=== PATIENT | female | born 1960 | race Caucasian/White ===

== ENCOUNTER 2017-01-08 17:21 | Emergency (ER) | payer BC ==
[~2017-01-08] VITALS: Ht 157.5 cm; Wt 60.0 kg
[~2017-01-08 17:21] MED LIST: HYDR-906 PO; IBUP-1542 PO; NAPR-260 PO; OXYC-279 PO
[2017-01-08 17:22] VITALS: Ht 157.5 cm; Wt 60.0 kg
[2017-01-08] MEDS ORDERED: HYDR-906 PO (17:34)
--- NOTE | 2017-01-08 17:34 | ERD ---
ER Documentation Chief Complaint Date/Time DATE: 01/08/17 TIME: 17:32 Chief Complaint R SHOULDER HAS A FX PER PT HPI This is a 56-year-old female who presents to the emergency room for evaluation of right-sided shoulder pain. The patient does state that she has a previous fracture in the humerus. She states that she is ran out of her Irving medication and states that she came to the emergency room for a refill. The patient was saying that she would like Percocets instead of Irving because they help her better. The patient denies any new trauma to the area and came to the ER for evaluation ROS All systems reviewed and are negative except as per history of present illness. Medications Home Meds Active Scripts Oxycodone HCl/Acetaminophen (Percocet 5-325 mg Tablet) 1 Each Tablet, 1 EACH PO QID, #18 TAB Prov:MAK CRAIG MD 06/28/16 Ibuprofen* (Motrin*) 600 Mg Tab, 600 MG PO Q6, #20 TAB Prov:MANUEL MCGOWAN NP 06/16/16 Hydrocodone/Acetaminophen (Irving 5-325 Tablet) 1 Each Tablet, 1 TAB PO Q6H Y for PAIN, #7 TAB Prov:MANUEL MCGOWAN NP 06/16/16 Hydrocodone/Acetaminophen ([place] 5-325 Tablet) 1 Each Tablet, 1 TAB PO Q6H Y for PAIN, #6 TAB Prov:VALERIE SMALLWOOD NP 06/09/16 Naproxen* (Naprosyn*) 500 Mg Tablet, 500 MG PO BID Y for PAIN AND/OR INFLAMMATION, #30 TAB Prov:PAPITO BLANTON PA-C 06/02/16 Hydrocodone/Acetaminophen (Ir[place] 5-325 Tablet) 1 Each Tablet, 1 TAB PO Q6H Y for PAIN, #10 TAB Prov:PAPITO BLANTON PA-C 06/02/16 Oxycodone HCl/Acetaminophen (Percocet 5-325 mg Tablet) 1 Each Tablet, 1 EACH PO BID, #15 TAB Prov:ROSA ELENA RENO PA-C 05/29/16 Hydrocodone/Acetaminophen (Irving 5-325 Tablet) 1 Each Tablet, 1 TAB PO Q6H Y for PAIN, #20 TAB Prov:ROSA ELENA RENO PA-C 05/20/16 Allergies Allergies: Coded Allergies: No Known Allergy (Unverified , 10/09/14) PMhx/Soc History of Surgery: No Anesthesia Reaction: No Hx Neurological Disorder: No Hx Respiratory Disorders: No Hx Cardiac Disorders: No Hx Psychiatric Problems: No Hx Miscellaneous Medical Probl: No Hx Alcohol Use: No Hx Substance Use: No Hx Tobacco Use: No Physical Exam Vitals Vital Signs Date Time Temp Pulse Resp B/P Pulse Ox O2 Delivery O2 Flow Rate FiO2 01/08/17 17:22 98.3 89 18 124/79 100 Physical Exam Const: No acute distress Head: Atraumatic Eyes: Normal Conjunctiva ENT: Normal External Ears, Nose and Mouth. Neck: Full range of motion..~ No meningismus. Resp: Clear to auscultation bilaterally Cardio: Regular rate and rhythm, no murmurs Abd: Soft, non tender, non distended. Normal bowel sounds Skin: No petechiae or rashes Back: No midline or flank tenderness Ext: No cyanosis, or edema, full range of motion of the right shoulder Neur: Awake and alert Psych: Normal Mood and Affect Procedures/MDM This 56-year-old female presents to the emergency room for evaluation of right shoulder pain. The patient did have full range of motion of the shoulder she was neurovascularly intact in her right upper extremity distal to the shoulder pain. No gross deformity. She does have old chronic fracture of the humeral head. The patient was asking for Percocet for her pain. I advised I will not be given her a prescription for Percocet. I advised her that the ER is not a place to come for a narcotic medication refill however given her circumstance I will discharge her home with a prescription for Irving 5 mg #10. Departure Diagnosis: Primary Impression: Shoulder pain Additional Impression: Fracture of humeral head, right, closed Condition: Stable BERT FINLEY DO January 08, 2017 17:34
[2017-01-08] MEDS ORDERED: HYDROCODONE/APAP (5/325) TAB PO ONE (18:00)
== END 2017-01-08 18:00 | disposition home or self-care (01) ==
LOC: FTE 17:21
DX: M25.511 Pain in right shoulder (principal); S42.201D Unspecified fracture of upper end of right humerus, subsequent encounter for fracture with routine healing; X58.XXXD Exposure to other specified factors, subsequent encounter
CPT/HCPCS: Z7502; Z7610; 99283

== ENCOUNTER 2017-02-10 14:01 | Emergency (ER) | payer BC ==
[~2017-02-10] VITALS: Ht 157.5 cm; Wt 78.0 kg
[2017-02-10 14:05] VITALS: Ht 157.5 cm; Wt 78.0 kg
--- NOTE | 2017-02-10 15:52 | RADRPT ---
PROCEDURE: XR Chest. CLINICAL INDICATION: Chest pain TECHNIQUE: A single portable view of the chest was obtained. COMPARISON: None FINDINGS: The aorta is tortuous and atherosclerotic. The cardiomediastinal silhouette is otherwise within nor mal limits. The lungs and pleural spaces are clear. The soft tissues and osseous structures demons trate benign age related senescent changes. IMPRESSION: No acute cardiopulmonary disease. RPTAT: HPNM Physician Gary Date Time Electronically viewed and signed by Hossein Moss Physician on 02/10/2017 15:52 /
[2017-02-10 16:17] LABS: ADD SCAN DIFF NO
[2017-02-10 16:23] LABS: BASOPHILS % 0.2 % (0.0-2.0); HEMATOCRIT 39.1 % (37.0-47.0); HEMOGLOBIN 13.3 g/dl (12.0-16.0); LYMPHOCYTES # 1.8 10^3/ul (0.8-2.9); LYMPHOCYTES % 14.8 % (15.0-51.0); MEAN CORPUSCULAR HEMOGLOBIN 30.2 pg (29.0-33.0); MEAN CORPUSCULAR VOLUME 88.7 fl (82.0-101.0); MEAN PLATELET VOLUME 11.3 fl (7.4-10.4); MONOCYTE # 0.7 10^3/ul (0.3-0.9); MONOCYTES % 5.4 % (0.0-11.0); NEUTROPHIL # 9.8 10^3/ul (1.6-7.5); NEUTROPHILS % 79.2 % (39.0-77.0); PLATELET COUNT 204 10^3/UL (140-415); RED BLOOD COUNT 4.41 10^6/ul (4.20-5.40); RED CELL DISTRIBUTION WIDTH 12.2 % (11.5-14.5); WHITE BLOOD COUNT 12.3 10^3/ul (4.8-10.8)
[2017-02-10] MEDS ORDERED: HYDROCODONE/APAP (5/325) TAB PO ONE (16:30)
[2017-02-10 16:45] LABS: INR 0.94; PROTIME 12.6 Sec (12.2-14.2)
[2017-02-10 16:46] LABS: ANION GAP 14 (8-16); BLOOD UREA NITROGEN 15 mg/dl (7-20); CALCIUM 9.7 mg/dl (8.4-10.2); CARBON DIOXIDE 26 mmol/L (21-31); CHLORIDE 96 mmol/L (97-110); CREATININE 0.58 mg/dl (0.44-1.00); GLUCOSE 378 mg/dl (70-220); SODIUM 132 mmol/L (135-144)
[2017-02-10 16:47] LABS: PARTIAL THROMBOPLASTIN TIME 24.4 Sec (25.0-35.0)
[2017-02-10 17:00] LABS: TROPONIN-I < 0.012 ng/ml (0.00-0.12)
--- NOTE | 2017-02-10 17:18 | RADRPT ---
PROCEDURE: Right breast ultrasound. CLINICAL INDICATION: Right breast palpable lesion. TECHNIQUE: High-resolution sonography of the right breast was performed in the axial and sagittal planes. COMPARISON: No prior study is available for comparison. FINDINGS: At the site of the palpable lesion in the 12 o'clock position of the right breast, there is a solid hypoechoic mass with irregular margins. The mass measures 7.2 x 6.2 x 5.4 cm. There is no other cystic or solid mass in the right breast IMPRESSION: 1. Large solid mass in the right breast 12 o'clock position measuring 7.2 x 6.2 x 5.4 cm. This is h ighly suspicious for neoplasm. Ultrasound-guided biopsy and surgical consultation is advised. RPTAT: QQ .Tez Pack MD, Date Time Electronically viewed and signed by .Tez Pack MD, on 02/10/2017 17:17 .R/
[2017-02-10] MEDS ORDERED: IBUP-1542 PO (17:42)
[2017-02-10 17:57] VITALS: BP 109/68; PULSE 66; RESP 16
--- NOTE | 2017-02-11 00:13 | ERD ---
ER Documentation Chief Complaint Date/Time DATE: 02/11/17 TIME: 00:09 Chief Complaint RIGHT BREAST LUMP FEW DAYS, HAS PAIN HPI This is a 56-year-old female presents to the ER with the lump in her breast over the last month. Patient states that area has gotten significantly painful and lump has gotten bigger. Patient denies any skin changes, nipple discharge, weight loss, night sweats. Patient also complaining of chest pain and shortness of breath which started last night. Patient believes that the mass is getting so bad that it is obstructing her breathing. Patient is currently on pain medications for a broken shoulder. Patient had a mammogram 2 years ago and states that it was normal. Patient denies any fevers or chills. ROS 12 point review of systems was done, all negative except per HPI. Medications Home Meds Active Scripts Ibuprofen* (Motrin*) 600 Mg Tab, 600 MG PO Q6, #30 TAB Prov:GUMARO ACOSTA 02/10/17 Hydrocodone/Acetaminophen ([place] 5-325 Tablet) 1 Each Tablet, 1 EACH PO Q8 for 3 Days, #10 TAB Prov:BERT FINLEY DO 01/08/17 Oxycodone HCl/Acetaminophen (Percocet 5-325 mg Tablet) 1 Each Tablet, 1 EACH PO QID, #18 TAB Prov:MAK RODAS MD 06/28/16 Ibuprofen* (Motrin*) 600 Mg Tab, 600 MG PO Q6, #20 TAB Prov:MANUEL MCGOWAN NP 06/16/16 Hydrocodone/Acetaminophen ([place] 5-325 Tablet) 1 Each Tablet, 1 TAB PO Q6H Y for PAIN, #7 TAB Prov:MANUEL MCGOWAN NP 06/16/16 Hydrocodone/Acetaminophen ([place] 5-325 Tablet) 1 Each Tablet, 1 TAB PO Q6H Y for PAIN, #6 TAB Prov:VALERIE SMALLWOOD NP 06/09/16 Naproxen* (Naprosyn*) 500 Mg Tablet, 500 MG PO BID Y for PAIN AND/OR INFLAMMATION, #30 TAB Prov:PAPITO BLANTON PA-C 06/02/16 Hydrocodone/Acetaminophen ([place] 5-325 Tablet) 1 Each Tablet, 1 TAB PO Q6H Y for PAIN, #10 TAB Prov:LUISA BLANTONORALeticia Oneill PA-C 06/02/16 Oxycodone HCl/Acetaminophen (Percocet 5-325 mg Tablet) 1 Each Tablet, 1 EACH PO BID, #15 TAB Prov:ROSA ELENA RENO PA-C 05/29/16 Hydrocodone/Acetaminophen ([place] 5-325 Tablet) 1 Each Tablet, 1 TAB PO Q6H Y for PAIN, #20 TAB Prov:ROSA ELENA RENO PA-C 05/20/16 Allergies Allergies: Coded Allergies: No Known Allergy (Unverified , 10/09/14) PMhx/Soc History of Surgery: No Anesthesia Reaction: No Hx Neurological Disorder: No Hx Respiratory Disorders: No Hx Cardiac Disorders: No Hx Psychiatric Problems: No Hx Miscellaneous Medical Probl: Yes (R shoulder fx, lower back fx.) Hx Alcohol Use: No Hx Substance Use: No Hx Tobacco Use: No Smoking Status: Never smoker Physical Exam Vitals Vital Signs Date Time Temp Pulse Resp B/P Pulse Ox O2 Delivery O2 Flow Rate FiO2 02/10/17 17:57 66 16 109/68 Room Air 02/10/17 14:05 98.2 76 18 118/76 99 Physical Exam GENERAL: The patient is well developed and appropriate for usual state of health , in no apparent distress. HEENT: Atraumatic. BREAST: There is a large centimeter there is a large 7 cm x 8 cm hard mass to the right breast that is nonmovable. CHEST: Clear to auscultation bilaterally. There are no rales, wheezes or rhonchi. HEART: Regular rate and rhythm. No murmurs, clicks, rubs or gallops. ABDOMEN: Soft, nontender and nondistended. Good bowel sounds. No rebound or guarding. No gross peritonitis. No gross organomegaly or masses. No Grimes sign or McBurney point tenderness. No pulsatile masses. NEURO: Alert and oriented. SKIN: There is no apparent rash or petechia. The skin is warm and dry. Result Diagram: 02/10/17 1600 02/10/17 1600 Results 24 hrs Laboratory Tests Test 02/10/17 16:00 White Blood Count 12.310^3/ul Red Blood Count 4.4110^6/ul Hemoglobin 13.3g/dl Hematocrit 39.1% Mean Corpuscular Volume 88.7fl Mean Corpuscular Hemoglobin 30.2pg Mean Corpuscular Hemoglobin Concent 34.0g/dl Red Cell Distribution Width 12.2% Platelet Count 17549^3/UL Mean Platelet Volume 11.3fl Neutrophils % 79.2% Lymphocytes % 14.8% Monocytes % 5.4% Eosinophils % 0.0% Basophils % 0.2% Nucleated Red Blood Cells % 0.0/100WBC Neutrophils # 9.810^3/ul Lymphocytes # 1.810^3/ul Monocytes # 0.710^3/ul Eosinophils # 0.010^3/ul Basophils # 0.010^3/ul Nucleated Red Blood Cells # 0.010^3/ul Prothrombin Time 12.6Sec Prothrombin Time Ratio 1.0 INR International Normalized Ratio 0.94 Activated Partial Thromboplast Time 24.4Sec Sodium Level 132mmol/L Potassium Level 4.0mmol/L Chloride Level 96mmol/L Carbon Dioxide Level 26mmol/L Anion Gap 14 Blood Urea Nitrogen 15mg/dl Creatinine 0.58mg/dl Glucose Level 378mg/dl Calcium Level 9.7mg/dl Troponin I < 0.012ng/ml Current Medications Medications (Trade) Dose Ordered Sig/Melissa Route PRN Reason Start Time Stop Time Status Last Admin Dose Admin Acetaminophen/ Hydrocodone Bitart ([place] (5/325)) 1 tab ONCE ONCE PO 02/10/17 16:30 02/10/17 16:31 DC 02/10/17 16:05 Procedures/MDM This is a 56-year-old female that presents to the ER with a lump in her breast, patient does have a hard mass that is likely a neoplasm. Patient was urged to get a needle biopsy as soon as possible. In regards to patient's chest pain Differential diagnosis includes but is not limited to; STEMI, dissection, pneumothorax, PE, esophageal rupture, tamponade, pneumonia, pericarditis, GERD, musculoskeletal, endocarditis, anxiety. EKG was taken [address] elevation no T-wave inversion, read by Dr. Rodas. Patient's x-ray was normal. Patient is afebrile and well-appearing she is not hypoxic in any respiratory distress. Suspicion for acute cardiac etiology or intrathoracic etiology is low. Patient is to follow-up with her primary care doctor within 1-2 days return to ER sooner if symptoms worsen. My medical decision making was shared with the patient she understands and agrees with plan. Departure Diagnosis: Primary Impression: Breast mass Condition: Stable Patient Instructions: Breast Mass, Uncertain Cause Additional Instructions: Call your primary care doctor TOMORROW for an appointment during the next 1-2 days.See the doctor sooner or return here if your condition worsens before your appointment time. IT IS VERY IMPORTANT THAT YOU FOLLOW UP WITH YOUR PRIMARY CARE DOCTOR AND GET A BIOPSY OF THIS MASS SOON POSSIBLE! GUMARO ACOSTA Feb 11, 2017 00:13
== END 2017-02-10 17:57 | disposition home or self-care (01) ==
LOC: FTE 14:01
DX: N63 Unspecified lump in breast (principal); R07.9 Chest pain, unspecified
CPT/HCPCS: 36415; 71010; 76642; 80048; 84484; 85025; 85610; 85730; 93005; Z7502; Z7610

== ENCOUNTER 2017-03-21 11:58 | Inpatient (IN) | payer BC ==
[~2017-03-21] VITALS: Ht 149.9 cm; Wt 60.0 kg
[2017-03-21] VITALS (18 sets, daily range): BP systolic 114–189; BP diastolic 61–88; PULSE 95–106; RESP 15–23; Ht 149.9 cm; Wt 60.0 kg
[~2017-03-21 11:58] MED LIST changes: +CEFAZOLIN 2 GM/50 ML (PMX) 50 ML IVPB SCH; +LIDOCAINE 1% (MDV) 20 ML INJ ONE
[2017-03-21 13:36] LABS: BASOPHILS % 0.3 % (0.0-2.0); EOSINOPHILS # 0.1 10^3/ul (0.0-0.5); EOSINOPHILS % 0.8 % (0.0-7.0); HEMOGLOBIN 13.7 g/dl (12.0-16.0); LYMPHOCYTES # 2.1 10^3/ul (0.8-2.9); LYMPHOCYTES % 32.7 % (15.0-51.0); MEAN CORPUSCULAR HEMOGLOBIN 29.2 pg (29.0-33.0); MEAN CORPUSCULAR HGB CONC 33.4 g/dl (32.0-37.0); MEAN CORPUSCULAR VOLUME 87.4 fl (82.0-101.0); MEAN PLATELET VOLUME 11.1 fl (7.4-10.4); MONOCYTE # 0.5 10^3/ul (0.3-0.9); MONOCYTES % 8.6 % (0.0-11.0); NEUTROPHIL # 3.6 10^3/ul (1.6-7.5); NEUTROPHILS % 57.3 % (39.0-77.0); PLATELET COUNT 222 10^3/UL (140-415); RED BLOOD COUNT 4.69 10^6/ul (4.20-5.40); RED CELL DISTRIBUTION WIDTH 12.7 % (11.5-14.5); WHITE BLOOD COUNT 6.3 10^3/ul (4.8-10.8)
[2017-03-21 13:49] LABS: INR 0.93; PARTIAL THROMBOPLASTIN TIME 27.7 Sec (25.0-35.0); PROTIME 12.5 Sec (12.2-14.2)
[2017-03-21 13:52] LABS: ALBUMIN 4.1 g/dl (3.3-4.9); ALBUMIN/GLOBULIN RATIO 1.13; BILIRUBIN,INDIRECT 0.4 mg/dl (0-1.1); BILIRUBIN,TOTAL 0.4 mg/dl (0.2-1.3); TOTAL PROTEIN 7.7 g/dl (6.1-8.1)
[2017-03-21 13:54] LABS: CALCIUM 9.2 mg/dl (8.4-10.2); CREATININE 0.53 mg/dl (0.44-1.00); POTASSIUM 3.7 mmol/L (3.5-5.1)
--- NOTE | 2017-03-21 13:57 | RADRPT ---
PROCEDURE: XR Chest 1 View. CLINICAL INDICATION: Abnormal breath sounds, preop. TECHNIQUE: AP view of the chest was obtained. COMPARISON: None. FINDINGS: The cardiomediastinal silhouette is within normal limits. No consolidations are identified. No pneu mothorax is seen. Osseous structures are intact. IMPRESSION: No visualized active disease. RPTAT: AA .Patrice Jackson MD, Date Time Electronically viewed and signed by .Patrice Jackson MD, on 03/21/2017 13:56 .P/
--- NOTE | 2017-03-21 14:32 | RADRPT ---
Vent Rate: 91 bpm RR Interval: 0 msec AL Interval: 136 msec QRS Duration: 70 msec QT Interval: 362 msec QTC Interval: 445 msec P-R-T Stanton: 59 - 68 - 63 degrees Normal sinus rhythm Normal ECG Electronically Signed By: Eric Fernando [id number]
[2017-03-21] MEDS: SOD CHLORIDE 0.9% 1,000 ML IV SCH ×2 (14:43→20:45)
[2017-03-21] MEDS ORDERED: D5W-0.45 NACL + KCL 20 MEQ 1,000 ML IV SCH (16:31)
[2017-03-21] MEDS ORDERED: PROPOFOL 20 ML ONE (16:34)
[2017-03-21] MEDS ORDERED: SUCCINYLCHOLINE CHLORIDE 100 MG/5 ML SYG IV ONE (16:34)
[2017-03-21] MEDS ORDERED: FENTAnyl 50 MCG/ML VIAL ONE (16:36)
[2017-03-21] MEDS ORDERED: MIDAZOLAM 1 MG/ML 2 ML INJ ONE (16:36)
[2017-03-21] MEDS ORDERED: FAMOTIDINE 20 MG INJ ONE (16:54)
[2017-03-21] MEDS ORDERED: ONDANSETRON 4 MG INJ ONE (16:54)
[2017-03-21] MEDS ORDERED: ACETAMINOPHEN 1000MG/100ML IV 100 ML IVPB PRN (17:00)
[2017-03-21] MEDS ORDERED: CEFAZOLIN 1 GM INJ ONE (17:15)
[2017-03-21] MEDS ORDERED: ESMOLOL 10 ML ONE ×2 (17:25→17:32)
[2017-03-21] MEDS ORDERED: HYDROmorphONE 2 MG/ML SYG ONE (17:54)
--- NOTE | 2017-03-21 18:15 | OPR ---
Date/Time of Note Date/Time of Note DATE: 03/21/17 TIME: 18:13 Operative Report Preoperative Diagnosis Large locally advanced right breast cancer Postoperative Diagnosis Same Operation/Procedure Performed Right modified radical mastectomy with en bloc resection of a large portion of the pectoralis major muscle Surgeon: LOBITO GREENE MD specimen preparation assistant: TAMICA WATTS MD Anesthesia: general Estimated Blood Loss: 200 - 250 ml's Complications: None LOBITO GREENE MD Mar 21, 2017 18:15
[2017-03-21] MEDS ORDERED: METOCLOPRAMIDE 10 MG INJ IV PRN (18:30)
[2017-03-21] MEDS ORDERED: TRIMETHOBENZAMIDE 100 MG/ML VIAL IM PRN (18:30)
[2017-03-21] MEDS ORDERED: PROCHLORPERAZINE 10 MG INJ IV PRN (18:30)
[2017-03-21] MEDS ORDERED: HYDROmorphONE (0.2 MG/ML) 10ML SYG IV PRN ×3 (18:30)
[2017-03-21] MEDS ORDERED: ONDANSETRON 4 MG INJ IV PRN (18:30)
[2017-03-21] MEDS ORDERED: INSULIN ASPART [NOVOLOG] 3 ML PEN SC ONE (18:30)
[2017-03-21] MEDS ORDERED: LABETALOL HCL 20MG INJ IV PRN (18:30)
[2017-03-21] MEDS ORDERED: hydrALAzine 20 MG INJ IV PRN (18:30)
[2017-03-21] MEDS ORDERED: morphine (1 MG/ML) 10ML SYRINGE IV PRN ×3 (18:30)
[2017-03-21] MEDS ORDERED: KETOROLAC 30 MG INJ IV PRN (18:30)
[2017-03-21] MEDS ORDERED: OXYCODONE/ACETAMINOPHEN (5/325) TAB PO PRN ×2 (18:30)
[2017-03-21] MEDS ORDERED: GLUCOSE GEL 15 GRAM TUBE BUCCAL PRN (20:30)
[2017-03-21] MEDS ORDERED: DEXTROSE 50% 50 ML SYRINGE IV PRN ×2 (20:30)
[2017-03-21] MEDS ORDERED: oxyCODONE (CR) 20 MG TAB [oxyCONTIN] PO PRN (20:30)
[2017-03-21] MEDS ORDERED: GLUCOSE GEL 15 GRAM TUBE PO PRN ×2 (20:30)
[2017-03-21] MEDS ORDERED: GLUCAGON 1 MG INJ IM PRN (20:30)
--- NOTE | 2017-03-21 20:48 | OPR ---
DATE OF OPERATION: 03/21/2017 PREOPERATIVE DIAGNOSIS: Extremely large locally advanced right breast cancer. POSTOPERATIVE DIAGNOSIS: Extremely large locally advanced right breast cancer. OPERATION PERFORMED: Right modified radical mastectomy with en bloc resection of the portion of the pectoralis major muscle. ANESTHESIA: Anesthesia general. ANESTHESIOLOGIST: Dr. Torres. SURGEON: Dr. Bebeto Vivas. SYSTEMS DESIGNER: Dr. Dos Santos. INDICATIONS FOR PROCEDURE: Patient is an unfortunate 56-year-old female presented with extremely large greater than 10 cm breast mass occupying essentially the entire breast. Biopsy confirmed invasive cancer. She was counseled as to the need for right modified radical mastectomy. She consented and was scheduled for surgery. OPERATIVE PROCEDURE: Patient was brought to the operating theater. She was placed under general anesthesia. The right breast and axillary region was prepped and draped in usual sterile fashion. A planned elliptical incision was demarcated with marking pen including the nipple areolar complex and a large amount of the skin overlying the breast. The incision was then carried out with 15 blade scalpel. Subcutaneous tissue was dissected with cautery. Allis Evans skin clamps were utilized to elevate the skin edges and skin flaps were created with the cautery in a sequential fashion. First superiorly to the clavicle, then medially to the sternal border, inferiorly to the inframammary fold, and then laterally until the latissimus dorsi muscle had been identified throughout its course. Mastectomy then took place from medial to lateral. In the midportion of the pectoralis major muscle. The mass was found to be invading the muscle therefore portions of the muscle were resected en bloc with the tumor. When the border of the pectoralis major muscle was reached. The pectoralis minor muscle was identified. The clavipectoral fascia was incised with blunt dissection along the chest wall. The long thoracic nerve was identified and kept out of harm's way. More superiorly, the axillary vein was dissected from medial to lateral. The thoracodorsal neurovascular bundle was identified dissected throughout its course and kept out of harm's way. There was evidence of metastatic disease to the lymph node. The level 1 and level 2 lymph nodes were then meticulously resected using the LigaSure device. Final connective tissue attachments to the latissimus dorsi muscle were then transected with cautery. Specimen was oriented and sent for permanent pathologic analysis. The wound was irrigated. Residual bleeding was controlled with cautery. Two number 10 flat Israel-Velazquez drains were then brought through the right mid axillary line. One was cut to size and laid within the axilla. The other was cut to size and laid over top of the pectoralis major muscle. Both drains were secured in place with 2-0 nylon sutures in standard fashion. The skin incision was then reapproximated with skin pooja. The patient tolerated the procedure well. ESTIMATED BLOOD LOSS: 250 cc. COMPLICATIONS: There were no complications. DISPOSITION: And the patient was transferred in stable condition to recovery room, where a circumferential compression dressing was applied. Dictated By: Bebeto Vivas MD /jonathan/nancie /Document#: [id number]
[2017-03-21] MEDS ORDERED: oxyCODONE 5 MG TAB PO PRN (21:00)
[2017-03-21] MEDS: INSULIN ASPART [NOVOLOG] 3 ML PEN SC SCH (21:53)
[2017-03-21] MEDS: ACETAMINOPHEN 325 MG TAB PO PRN (23:20)
[2017-03-21] MEDS: morphine 4 MG/ML VIAL IV PRN (23:55)
[2017-03-22] VITALS (7 sets, daily range): BP systolic 102–132; BP diastolic 57–75; PULSE 92–96; RESP 16–24
[2017-03-22] MEDS ORDERED: ACCU-CHEK XX SCH (02:00)
[2017-03-22] MEDS: ACCU-CHEK XX SCH (02:00)
[2017-03-22] MEDS: morphine 4 MG/ML VIAL IV PRN ×5 (05:05→23:10)
[2017-03-22 06:30] LABS: BASOPHILS % 0.2 % (0.0-2.0); HEMATOCRIT 31.1 % (37.0-47.0); HEMOGLOBIN 10.4 g/dl (12.0-16.0); LYMPHOCYTES # 1.9 10^3/ul (0.8-2.9); LYMPHOCYTES % 23.1 % (15.0-51.0); MEAN CORPUSCULAR HEMOGLOBIN 29.9 pg (29.0-33.0); MEAN CORPUSCULAR HGB CONC 33.4 g/dl (32.0-37.0); MEAN CORPUSCULAR VOLUME 89.4 fl (82.0-101.0); MONOCYTE # 0.5 10^3/ul (0.3-0.9); MONOCYTES % 6.5 % (0.0-11.0); NEUTROPHIL # 5.7 10^3/ul (1.6-7.5); PLATELET COUNT 173 10^3/UL (140-415); RED BLOOD COUNT 3.48 10^6/ul (4.20-5.40); RED CELL DISTRIBUTION WIDTH 12.3 % (11.5-14.5); WHITE BLOOD COUNT 8.1 10^3/ul (4.8-10.8)
[2017-03-22] MEDS: ACETAMINOPHEN 325 MG TAB PO PRN ×2 (07:52→17:38)
[2017-03-22] MEDS: metFORMIN 500 MG TAB PO SCH (07:56)
[2017-03-22] MEDS: INSULIN GLARGINE [LANtus] 3 ML PEN SC SCH (07:57)
[2017-03-22] MEDS: INSULIN ASPART [NOVOLOG] 3 ML PEN SC SCH ×4 (07:59→21:00)
--- NOTE | 2017-03-22 15:05 | HP ---
Date/Time of Note Date/Time of Note DATE: 03/22/17 TIME: 15:04 Assessment/Plan VTE Prophylaxis VTE Prophylaxis Intervention: other Lines/Catheters IV Catheter Type (from Nrs): Peripheral IV Urinary Cath still in place: No HPI/ROS Admit Date/Time Admit Date/Time Mar 21, 2017 at 11:58 Hx of Present Illness Patient with breast cancer is here for mastectomy. Patient tolerated the procedure but is having pain issues. PMH/Family/Social Past Medical History Medical History: no pertinent history Past Surgical History Past Surgical Hx: no surgical history Social History Smoking Status: Never smoker Exam/Review of Systems Vital Signs Vitals Vital Signs Date Time Temp Pulse Resp B/P Pulse Ox O2 Delivery O2 Flow Rate FiO2 03/22/17 08:24 98.1 93 20 108/63 99 03/22/17 04:30 Room Air 03/21/17 18:29 6.0 Intake and Output 03/21/17 03/21/17 03/22/17 15:00 23:00 07:00 Intake Total 1600 ml 915 ml Output Total 260 ml 405 ml Balance 1340 ml 510 ml Exam Constitutional: well developed Head: atraumatic, normocephalic Neck: supple Respiratory: clear to auscultation Cardiovascular: regular rate and rhythm Gastrointestinal: non-tender, soft Labs Result Diagram: 03/22/17 0546 03/21/17 1310 Medications Medications Current Medications Ondansetron HCl (Zofran Inj) 4 mg Q6H PRN IV NAUSEA AND/OR VOMITING; Start 03/21 at 17:00 Morphine Sulfate 2 mg 2 mg Q1H PRN IV PAIN Last administered on 03/22/17 14:43 ; Admin Dose 2 MG; Start 03/21/17 at 17:00 Acetaminophen (Ofirmev 1000mg/ 100ml Iv) 100 ml @ 400 mls/hr Q6H PRN IVPB PAIN ; Start 03/21/17 at 17:00 Insulin Glargine (Lantus) 20 unit DAILY@08 SC Last administered on 03/22/17 07: 57; Admin Dose 20 UNIT; Start 03/22/17 at 08:00 Diagnostic Test (Pha) (Accu-Chek) 1 ea 02 XX ; Start 03/22/17 at 02:00 Clonidine (Catapres) 0.1 mg Q6H PRN PO SBP > 160; Start 03/21/17 at 20:30 Miscellaneous Information 1 ea NOTE XX ; Start 03/21/17 at 20:30 Glucose (Glutose) 15 gm Q15M PRN PO DECREASED GLUCOSE; Start 03/21/17 at 20:30 Glucose (Glutose) 22.5 gm Q15M PRN PO DECREASED GLUCOSE; Start 03/21/17 at 20:30 Dextrose (D50w Syringe) 25 ml Q15M PRN IV DECREASED GLUCOSE; Start 03/21/17 at 20:30 Dextrose (D50w Syringe) 50 ml Q15M PRN IV DECREASED GLUCOSE; Start 03/21/17 at 20:30 Glucagon (Glucagen) 1 mg Q15M PRN IM DECREASED GLUCOSE; Start 03/21/17 at 20:30 Glucose (Glutose) 15 gm Q15M PRN BUCCAL DECREASED GLUCOSE; Start 03/21/17 at 20: 30 Acetaminophen (Tylenol Tab) 650 mg Q6H PRN PO PAIN AND OR ELEVATED TEMP Last administered on 03/22/17t 07:52; Admin Dose 650 MG; Start 03/21/17 at 23:30 Oxycodone HCl (Roxicodone) 20 mg QID PRN PO PAIN; Start 03/22/17 at 17:00 JOSE CARLOS MARTINEZ Mar 22, 2017 15:05
[2017-03-22] MEDS: oxyCODONE 5 MG TAB PO PRN (16:15)
[2017-03-22] MEDS: ONDANSETRON 4 MG INJ IV PRN (17:38)
[2017-03-23 02:00] VITALS: BP 127/75; RESP 20
[2017-03-23] MEDS: ACCU-CHEK XX SCH (02:00)
[2017-03-23] MEDS: morphine 4 MG/ML VIAL IV PRN ×3 (02:24→10:56)
[2017-03-23 06:45] LABS: BASOPHILS % 0.3 % (0.0-2.0); EOSINOPHILS # 0.1 10^3/ul (0.0-0.5); EOSINOPHILS % 1.1 % (0.0-7.0); HEMOGLOBIN 11.2 g/dl (12.0-16.0); LYMPHOCYTES % 27.8 % (15.0-51.0); MEAN CORPUSCULAR HEMOGLOBIN 29.1 pg (29.0-33.0); MEAN CORPUSCULAR HGB CONC 32.9 g/dl (32.0-37.0); MEAN CORPUSCULAR VOLUME 88.3 fl (82.0-101.0); MEAN PLATELET VOLUME 11.2 fl (7.4-10.4); MONOCYTE # 0.6 10^3/ul (0.3-0.9); MONOCYTES % 7.9 % (0.0-11.0); NEUTROPHIL # 4.4 10^3/ul (1.6-7.5); NEUTROPHILS % 62.5 % (39.0-77.0); PLATELET COUNT 199 10^3/UL (140-415); RED BLOOD COUNT 3.85 10^6/ul (4.20-5.40); RED CELL DISTRIBUTION WIDTH 12.7 % (11.5-14.5); WHITE BLOOD COUNT 7.1 10^3/ul (4.8-10.8)
[2017-03-23] MEDS: ONDANSETRON 4 MG INJ IV PRN ×2 (07:42→22:17)
[2017-03-23] MEDS: ACETAMINOPHEN 325 MG TAB PO PRN ×3 (07:42→23:43)
[2017-03-23] MEDS: metFORMIN 500 MG TAB PO SCH (07:48)
[2017-03-23] MEDS: INSULIN ASPART [NOVOLOG] 3 ML PEN SC SCH ×4 (07:48→20:35)
[2017-03-23] MEDS: INSULIN GLARGINE [LANtus] 3 ML PEN SC SCH (07:50)
[2017-03-23 08:00] VITALS: BP 169/94; RESP 18
[2017-03-23 11:26] VITALS: BP 142/88; PULSE 90
[2017-03-23] MEDS ORDERED: morphine 2 MG INJ IV PRN (12:00)
--- NOTE | 2017-03-23 12:34 | PN ---
Date/Time of Note Date/Time of Note DATE: 03/23/17 TIME: 12:33 Assessment/Plan VTE Prophylaxis VTE Prophylaxis Intervention: other Lines/Catheters IV Catheter Type (from Nrs): Saline Lock Urinary Cath still in place: No Assessment/Plan Chief Complaint/Hosp Course 1) breast cancer - s/p mastectomy - continue postoperative care Problems: Subjective 24 Hr Interval Summary Free Text/Dictation Patient complain of pain, have not ambulated Exam/Review of Systems Vital Signs Vitals Vital Signs Date Time Temp Pulse Resp B/P Pulse Ox O2 Delivery O2 Flow Rate FiO2 03/23/17 11:26 90 142/88 03/23/17 08:00 99.1 18 99 03/22/17 04:30 Room Air 03/21/17 18:29 6.0 Intake and Output 03/22/17 03/22/17 03/23/17 15:00 23:00 07:00 Intake Total 325 ml 800 ml 300 ml Output Total 40 ml Balance 325 ml 760 ml 300 ml Exam Constitutional: well developed Head: atraumatic, normocephalic Neck: supple Respiratory: diminished breath sounds Cardiovascular: regular rate and rhythm Gastrointestinal: non-tender, soft Extremities: normal pulses Results Result Diagram: 03/23/17 0516 03/21/17 1310 Results 24 hrs Laboratory Tests Test 03/22/17 17:42 03/22/17 20:09 03/23/17 05:16 03/23/17 07:47 Bedside Glucose 213 164 150 White Blood Count 7.1 Red Blood Count 3.85 L Hemoglobin 11.2 L Hematocrit 34.0 L Mean Corpuscular Volume 88.3 Mean Corpuscular Hemoglobin 29.1 Mean Corpuscular Hemoglobin Concent 32.9 Red Cell Distribution Width 12.7 Platelet Count 199 Mean Platelet Volume 11.2 H Neutrophils % 62.5 Lymphocytes % 27.8 Monocytes % 7.9 Eosinophils % 1.1 Basophils % 0.3 Nucleated Red Blood Cells % 0.0 Neutrophils # 4.4 Lymphocytes # 2.0 Monocytes # 0.6 Eosinophils # 0.1 Basophils # 0.0 Nucleated Red Blood Cells # 0.0 Medications Medications Current Medications Ondansetron HCl 4 mg 4 mg Q6H PRN IV NAUSEA AND/OR VOMITING Last administered on 03/23/17t 07:42; Admin Dose 4 MG; Start 03/21/17 at 17:00 Acetaminophen (Ofirmev 1000mg/ 100ml Iv) 100 ml @ 400 mls/hr Q6H PRN IVPB PAIN ; Start 03/21/17 at 17:00 Insulin Glargine (Lantus) 20 unit DAILY@08 SC Last administered on 03/23/17 07: 50; Admin Dose 20 UNIT; Start 03/22/17 at 08:00 Diagnostic Test (Pha) (Accu-Chek) 1 ea 02 XX ; Start 03/22/17 at 02:00 Clonidine (Catapres) 0.1 mg Q6H PRN PO SBP > 160; Start 03/21/17 at 20:30 Miscellaneous Information 1 ea NOTE XX ; Start 03/21/17 at 20:30 Glucose (Glutose) 15 gm Q15M PRN PO DECREASED GLUCOSE; Start 03/21/17 at 20:30 Glucose (Glutose) 22.5 gm Q15M PRN PO DECREASED GLUCOSE; Start 03/21/17 at 20:30 Dextrose (D50w Syringe) 25 ml Q15M PRN IV DECREASED GLUCOSE; Start 03/21/17 at 20:30 Dextrose (D50w Syringe) 50 ml Q15M PRN IV DECREASED GLUCOSE; Start 03/21/17 at 20:30 Glucagon (Glucagen) 1 mg Q15M PRN IM DECREASED GLUCOSE; Start 03/21/17 at 20:30 Glucose (Glutose) 15 gm Q15M PRN BUCCAL DECREASED GLUCOSE; Start 03/21/17 at 20: 30 Acetaminophen (Tylenol Tab) 650 mg Q6H PRN PO PAIN AND OR ELEVATED TEMP Last administered on 03/23/17 07:42; Admin Dose 650 MG; Start 03/21/17 at 23:30 Oxycodone HCl (Roxicodone) 20 mg QID PRN PO PAIN Last administered on 03/22/17 16:15; Admin Dose 20 MG; Start 03/22/17 at 17:00 Morphine Sulfate (morphine) 2 mg Q1H PRN IV PAIN; Start 03/23/17 at 12:00 JOSE CARLOS MARTINEZ Mar 23, 2017 12:34
[2017-03-23] MEDS ORDERED: HYDROmorphONE 1 MG/ML SYG IV PRN (13:00)
[2017-03-23] MEDS: traMADol 50 MG TAB PO SCH ×3 (13:05→20:25)
[2017-03-23 14:00] VITALS: BP 134/78; RESP 19
[2017-03-23 20:00] VITALS: BP 130/81; RESP 20
[2017-03-24 02:00] VITALS: BP 126/74; RESP 20
[2017-03-24] MEDS: ACCU-CHEK XX SCH (02:00)
[2017-03-24] MEDS: oxyCODONE 5 MG TAB PO PRN (02:33)
[2017-03-24] MEDS: traMADol 50 MG TAB PO SCH ×2 (08:12→12:08)
[2017-03-24] MEDS: metFORMIN 500 MG TAB PO SCH (08:12)
[2017-03-24] MEDS: ONDANSETRON 4 MG INJ IV PRN (08:12)
[2017-03-24 08:13] VITALS: BP 115/74; RESP 19
[2017-03-24] MEDS: INSULIN GLARGINE [LANtus] 3 ML PEN SC SCH (08:14)
[2017-03-24] MEDS: INSULIN ASPART [NOVOLOG] 3 ML PEN SC SCH ×2 (08:15→12:09)
--- NOTE | 2017-03-24 11:56 | PSY ---
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 Pt admits depression, low mood, anergia, anhedonia, denies si, denies psychosis , denies drug use. 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, depressed -begin zoloft 25mg for 3d then 50mg -pt should be referred to outpatient psychiatry and therapy, within a week of discharge Medical history Problems Medical Problems: (1) Back pain Status: Acute (2) Breast mass Status: Acute (3) Breast mass Status: Acute (4) Encounter for medication refill Status: Acute (5) Fracture of humeral head, right, closed Status: Acute (6) Fracture of humeral head, right, closed Status: Acute (7) Fracture of humeral head, right, closed Status: Acute (8) Shoulder pain Status: Acute (9) Shoulder pain Status: Acute Allergies: Coded Allergies: No Known Allergy (Unverified , 10/09/14) Psychiatric Objective Eval Mental Status Examination: Laboratory Results Laboratory Tests Test 03/22/17 17:42 03/22/17 20:09 03/23/17 05:16 03/23/17 07:47 Bedside Glucose 213mg/dL 164mg/dL 150mg/dL White Blood Count 7.110^3/ul Red Blood Count 3.8510^6/ul Hemoglobin 11.2g/dl Hematocrit 34.0% Mean Corpuscular Volume 88.3fl Mean Corpuscular Hemoglobin 29.1pg Mean Corpuscular Hemoglobin Concent 32.9g/dl Red Cell Distribution Width 12.7% Platelet Count 72737^3/UL Mean Platelet Volume 11.2fl Neutrophils % 62.5% Lymphocytes % 27.8% Monocytes % 7.9% Eosinophils % 1.1% Basophils % 0.3% Nucleated Red Blood Cells % 0.0/100WBC Neutrophils # 4.410^3/ul Lymphocytes # 2.010^3/ul Monocytes # 0.610^3/ul Eosinophils # 0.110^3/ul Basophils # 0.010^3/ul Nucleated Red Blood Cells # 0.010^3/ul Test 03/23/17 12:29 03/23/17 17:21 03/23/17 20:32 03/24/17 07:55 Bedside Glucose 177mg/dL 193mg/dL 174mg/dL 142mg/dL ZAC BRUNER Mar 24, 2017 11:56
--- NOTE | 2017-03-24 12:43 | DS ---
Date/Time of Note Date/Time of Note DATE: 03/24/17 TIME: 12:42 Discharge Summary Admission/Discharge Info Admit Date/Time Mar 21, 2017 at 11:58 Discharge Date/Time 03/24/17 Discharge Diagnosis breast cancer Patient Condition: Fair Consults surgery Procedures mastectomy Hx of Present Illness Patient with breast cancer is here for mastectomy. Patient tolerated the procedure but is having pain issues. Hospital Course Patient with breast cancer comes in for mastectomy. Patient tolerated the procedure and once cleared by surgery, she will be sent home. 1) breast cancer - s/p mastectomy - continue postoperative prison Meds Active Scripts Ibuprofen* (Motrin*) 600 Mg Tab, 600 MG PO Q6, #30 TAB Prov:GUMARO ACOSTA 02/10/17 Hydrocodone/Acetaminophen ([place] 5-325 Tablet) 1 Each Tablet, 1 EACH PO Q8 for 3 Days, #10 TAB Prov:BERT FINLEY DO 01/08/17 Oxycodone HCl/Acetaminophen (Percocet 5-325 mg Tablet) 1 Each Tablet, 1 EACH PO QID, #18 TAB Prov:MAK CRAIG MD 06/28/16 Ibuprofen* (Motrin*) 600 Mg Tab, 600 MG PO Q6, #20 TAB Prov:MANUEL MCGOWAN NP 06/16/16 Hydrocodone/Acetaminophen ([place] 5-325 Tablet) 1 Each Tablet, 1 TAB PO Q6H Y for PAIN, #7 TAB Prov:MANUEL MCGOWAN NP 06/16/16 Hydrocodone/Acetaminophen ([place] 5-325 Tablet) 1 Each Tablet, 1 TAB PO Q6H Y for PAIN, #6 TAB Prov:VALERIE SMALLWOOD NP 06/09/16 Naproxen* (Naprosyn*) 500 Mg Tablet, 500 MG PO BID Y for PAIN AND/OR INFLAMMATION, #30 TAB Prov:PAPITO BLANTON PA-C 06/02/16 Hydrocodone/Acetaminophen ([place] 5-325 Tablet) 1 Each Tablet, 1 TAB PO Q6H Y for PAIN, #10 TAB Prov:PAPITO BLANTON PA-C 06/02/16 Oxycodone HCl/Acetaminophen (Percocet 5-325 mg Tablet) 1 Each Tablet, 1 EACH PO BID, #15 TAB Prov:ROSA ELENA RENO PA-C 05/29/16 Hydrocodone/Acetaminophen ([place] 5-325 Tablet) 1 Each Tablet, 1 TAB PO Q6H Y for PAIN, #20 TAB Prov:ROSA ELENA RENO PA-C 05/20/16 Primary Care Provider Jareth Ribeiro Pending Labs Laboratory Tests Test 03/23/17 17:21 03/23/17 20:32 03/24/17 07:55 03/24/17 11:57 Bedside Glucose 193mg/dL (70-220) 174mg/dL (70-220) 142mg/dL (70-220) 239mg/dL (70-220) JOSE CARLOS MARTINEZ Mar 24, 2017 12:43
[2017-03-24 14:33] VITALS: BP 117/76; RESP 17
--- NOTE | 2017-03-24 16:20 | PN ---
Date/Time of Note Date/Time of Note DATE: 03/24/17 TIME: 16:06 Assessment/Plan VTE Prophylaxis VTE Prophylaxis Intervention: ambulation Lines/Catheters IV [facility] Saline Lock Urinary Cath still in place: No Assessment/Plan Assessment/Plan 56-year-old female status post right modified radical mastectomy for locally advanced cancer of the right breast. Status postop day #3. We had to keep the patient because the patient was having too much pain. I believe the pain was because surgeon had to remove most of the parts of the pectoralis major muscle because it was very close to the posterior border of the tumor. In any case eventually today the patient's pain is under control with tramadol. We are going to discharge the patient in the care of her sister and daughter states that her heart take care of the Israel-Velazquez drainage. Patient to call Dr. Rodriguez office tomorrow Saturday and make an appointment for follow-up. Subjective 24 Hr Interval Summary Free Text/Dictation Postop day #3. States that the pain in the right breast is under control with the new medication. No nausea no vomiting tolerating diet. Exam/Review of Systems Vital Signs Vitals Vital Signs Date Time Temp Pulse Resp B/P Pulse Ox O2 Delivery O2 Flow Rate FiO2 03/24/17 14:33 98.4 99 17 117/76 98 03/22/17 04:30 Room Air 03/21/17 18:29 6.0 Intake and Output 03/23/17 03/23/17 03/24/17 15:00 23:00 07:00 Intake Total 610 ml 450 ml Output Total 38 ml Balance 572 ml 450 ml Exam Vital sign is stable and afebrile. Patient is alert awake oriented 3. [address] [place]-[address] The drainage color is serosanguineous. Drainage in the past 24 hours is 38 cc. Patient moves right upper extremity very easily. Results Result Diagram: 03/23/17 0516 03/21/17 1310 Results 24 hrs Laboratory Tests Test 03/23/17 17:21 03/23/17 20:32 03/24/17 07:55 03/24/17 11:57 Bedside Glucose 193 174 142 239 H Medications Medications Current Medications Ondansetron HCl 4 mg 4 mg Q6H PRN IV NAUSEA AND/OR VOMITING Last administered on 03/24/17 08:12; Admin Dose 4 MG; Start 03/21/17 at 17:00 Acetaminophen (Ofirmev 1000mg/ 100ml Iv) 100 ml @ 400 mls/hr Q6H PRN IVPB PAIN ; Start 03/21/17 at 17:00 Insulin Glargine (Lantus) 20 unit DAILY@08 SC Last administered on 03/24/17 08: 14; Admin Dose 20 UNIT; Start 03/22/17 at 08:00 Diagnostic Test (Pha) (Accu-Chek) 1 ea 02 XX ; Start 03/22/17 at 02:00 Clonidine (Catapres) 0.1 mg Q6H PRN PO SBP > 160; Start 03/21/17 at 20:30 Miscellaneous Information 1 ea NOTE XX ; Start 03/21/17 at 20:30 Glucose (Glutose) 15 gm Q15M PRN PO DECREASED GLUCOSE; Start 03/21/17 at 20:30 Glucose (Glutose) 22.5 gm Q15M PRN PO DECREASED GLUCOSE; Start 03/21/17 at 20:30 Dextrose (D50w Syringe) 25 ml Q15M PRN IV DECREASED GLUCOSE; Start 03/21/17 at 20:30 Dextrose (D50w Syringe) 50 ml Q15M PRN IV DECREASED GLUCOSE; Start 03/21/17 at 20:30 Glucagon (Glucagen) 1 mg Q15M PRN IM DECREASED GLUCOSE; Start 03/21/17 at 20:30 Glucose (Glutose) 15 gm Q15M PRN BUCCAL DECREASED GLUCOSE; Start 03/21/17 at 20: 30 Acetaminophen (Tylenol Tab) 650 mg Q6H PRN PO PAIN AND OR ELEVATED TEMP Last administered on 03/23/17 23:43; Admin Dose 650 MG; Start 03/21/17 at 23:30 Oxycodone HCl (Roxicodone) 20 mg QID PRN PO PAIN Last administered on 03/24/17 02:33; Admin Dose 20 MG; Start 03/22/17 at 17:00 Hydromorphone HCl (Dilaudid) 0.5 mg Q2H PRN IV PAIN; Start 03/23/17 at 13:00 Tramadol HCl (Ultram) 50 mg TID PO Last administered on 03/24/17 12:08; Admin Dose 50 MG; Start 03/23/17 at 21:00 TAMICA WATTS MD Mar 24, 2017 16:19
== END 2017-03-24 16:15 | disposition home or self-care (01) | DRG 581 ==
LOC: REC 11:58 → EDSTATUS 15:00 → PP2 19:50
PROVIDERS: ADMIT Surgery Surgical Oncology; ATTEND Surgery Surgical Oncology
PROC: 0KBH0ZZ Excision of Right Thorax Muscle, Open Approach (ICD-10-PCS; 2017-03-21)
PROC: 0HTT0ZZ Resection of Right Breast, Open Approach (ICD-10-PCS; principal; 2017-03-21 15:00)
DX: C50.111 Malignant neoplasm of central portion of right female breast (principal); F32.9 Major depressive disorder, single episode, unspecified; Z17.0 Estrogen receptor positive status [ER+]; M19.90 Unspecified osteoarthritis, unspecified site; G89.18 Other acute postprocedural pain; M25.511 Pain in right shoulder; E11.9 Type 2 diabetes mellitus without complications; Z79.4 Long term (current) use of insulin
CPT/HCPCS: 71010; 80053; 82962; 85025; 85610; 85730; 88307; 93005; J0360; J0690; J1170; J1815; J1885; J2250; J2270; J2405; J3010; J7030; J7999

== ENCOUNTER 2017-05-03 20:06 | Emergency (ER) | payer BC ==
[~2017-05-03] VITALS: Ht 149.9 cm; Wt 62.0 kg
[~2017-05-03 20:06] MED LIST changes: -CEFAZOLIN 2 GM/50 ML (PMX) 50 ML IVPB SCH; -LIDOCAINE 1% (MDV) 20 ML INJ ONE
[2017-05-03 20:12] VITALS: Ht 149.9 cm; Wt 62.0 kg
[2017-05-03] MEDS ORDERED: HYDROCODONE/APAP (5/325) TAB PO ONE (21:30)
--- NOTE | 2017-05-03 21:41 | RADRPT ---
PROCEDURE: XR Chest. CLINICAL INDICATION: Chest pain last night. TECHNIQUE: Single frontal view of the chest. COMPARISON: 02/10/2017. FINDINGS: The cardiomediastinal silhouette is within normal limits. The lungs are clear. No signs of pleural f luid or pneumothorax are seen. The osseous structures and soft tissues are unremarkable. IMPRESSION: No evidence for active cardiopulmonary disease. RPTAT: [facility] Physician Emmanuelle Date Time Electronically viewed and signed by Kojo Domingo Physician on 05/03/2017 21:41 RS/
[2017-05-03] MEDS ORDERED: TRAM50TA2 PO (23:09)
[2017-05-03] MEDS ORDERED: PENI500T PO (23:09)
[2017-05-03 23:35] VITALS: BP 112/81; PULSE 114; RESP 16
--- NOTE | 2017-05-04 00:03 | ERD ---
ER Documentation Chief Complaint Date/Time DATE: 05/03/17 TIME: 23:57 Chief Complaint R ear pain and cheek swelling and toothache HPI 56-year-old female patient with a past medical history of diagnosed right breast cancer status post right mastectomy on March 21, 2017 and diabetes presents the ED complaining of right lower mandibular toothache that radiates to her right ear and to her head. Describes the pain as sharp and rates it a 10 out of 10. States that she tried taking ibuprofen without relief of her pain. Reports that she also woke up with some slight anterior chest pain that radiates to her left arm and states that she is currently going through a lot of stress. States that her sister has been in and out of the hospital and woke up thinking about the situation. Denies any wheezing, shortness of breath, dyspnea on exertion, leg swelling, calf tenderness or redness. ROS All systems reviewed and are negative except as per history of present illness. Medications Home Meds Active Scripts Tramadol HCl (Tramadol HCl) 50 Mg Tablet, 50 MG PO Q6, #20 TAB Prov:DUTCH NEVES PA-C 05/03/17 Penicillin V Potassium* (Penicillin V K*) 500 Mg Tab, 500 MG PO QID for 7 Days, TAB Prov:DUTCH NEVES PA-C 05/03/17 Ibuprofen* (Motrin*) 600 Mg Tab, 600 MG PO Q6, #30 TAB Prov:GUMARO ACOSTA 02/10/17 Hydrocodone/Acetaminophen ([place] 5-325 Tablet) 1 Each Tablet, 1 EACH PO Q8 for 3 Days, #10 TAB Prov:BERT FINLEY DO 01/08/17 Oxycodone HCl/Acetaminophen (Percocet 5-325 mg Tablet) 1 Each Tablet, 1 EACH PO QID, #18 TAB Prov:MKA CRAIG MD 06/28/16 Ibuprofen* (Motrin*) 600 Mg Tab, 600 MG PO Q6, #20 TAB Prov:MANUEL MCGOWAN NP 06/16/16 Hydrocodone/Acetaminophen ([place] 5-325 Tablet) 1 Each Tablet, 1 TAB PO Q6H Y for PAIN, #7 TAB Prov:MANUEL MCGOWAN NP 06/16/16 Hydrocodone/Acetaminophen ([place] 5-325 Tablet) 1 Each Tablet, 1 TAB PO Q6H Y for PAIN, #6 TAB Prov:VALERIE SMALLWOOD, [employer] SUPERINTENDENT 06/09/16 Naproxen* (Naprosyn*) 500 Mg Tablet, 500 MG PO BID Y for PAIN AND/OR INFLAMMATION, #30 TAB Prov:PAPITO BLANTONC 06/02/16 Hydrocodone/Acetaminophen ([place] 5-325 Tablet) 1 Each Tablet, 1 TAB PO Q6H Y for PAIN, #10 TAB Prov:PAPITO BLANTONC 06/02/16 Oxycodone HCl/Acetaminophen (Percocet 5-325 mg Tablet) 1 Each Tablet, 1 EACH PO BID, #15 TAB Prov:ROSA ELENA RENO PA-C 05/29/16 Hydrocodone/Acetaminophen ([place] 5-325 Tablet) 1 Each Tablet, 1 TAB PO Q6H Y for PAIN, #20 TAB Prov:ROSA ELENA RENOC 05/20/16 Allergies Allergies: Coded Allergies: No Known Allergy (Unverified , 10/09/14) PMhx/Soc History of Surgery: Yes (PARTIAL HYSTERECTOMY, C-SEC X2,CYST REMOVED, APPENDECTOMY, RT MASTECTOMY ) Anesthesia Reaction: No Hx Neurological Disorder: No Hx Respiratory Disorders: No Hx Cardiac Disorders: No Hx Psychiatric Problems: No Hx Miscellaneous Medical Probl: No Hx Alcohol Use: No Hx Substance Use: No Hx Tobacco Use: No Smoking Status: Former smoker Physical Exam Vitals Vital Signs Date Time Temp Pulse Resp B/P Pulse Ox O2 Delivery O2 Flow Rate FiO2 05/03/17 23:35 114 16 112/81 98 Room Air 05/03/17 20:12 98.8 107 20 124/80 98 Physical Exam Const: [id number], well-nourished. In no acute distress. Head: Atraumatic, normocephalic Eyes: Normal Conjunctiva without injection. No purulent discharge. PERRL. EOMI ENT: Normal external ear. Ear canal without erythema. Tympanic membrane pearly carlos without effusion or bulging. Nasal canal clear with normal turbinates. Tenderness to palpation of right mandibular canine with surrounding erythema. Moist oropharynx without tonsillar exudates. Non-erythematous pharynx. Uvula midline. No drooling. No trismus. Neck: Full range of motion. No meningismus. No cervical lymphadenopathy. Resp: Clear to auscultation bilaterally. No wheezing, rhonchi, rales, or crackles. No accessory muscle use. No retractions. Cardio: Regular rate and rhythm. No murmurs, rubs or gallops. Chest: Tenderness to palpation of the anterior chest. Pain is reproducible. Abd: Soft, non tender, non distended. Normal bowel sounds. No palpable masses. No rebound tenderness. No guarding. Skin: No petechiae or rashes Back: No midline tenderness. No CVA tenderness. Ext: No cyanosis, or edema. Neur: Awake and alert. Psych: Normal Mood and Affect Results 24 hrs Current Medications Medications (Trade) Dose Ordered Sig/Melissa Route PRN Reason Start Time Stop Time Status Last Admin Dose Admin Acetaminophen/ Hydrocodone Bitart ([place] (5/325)) 1 tab ONCE ONCE PO 05/03/17 21:30 05/03/17 21:31 DC 05/03/17 21:08 Procedures/MDM This is a 56-year-old female patient with a past medical history of diabetes, right mastectomy on March 21, 2017 presents to the ED complaining of chest wall pain started last night as well as right lower tooth pain that started 2 days ago. Patient is afebrile and nontoxic-appearing. This case was discussed with my supervising physician, Dr. Ma who stated that we can further evaluate patient with an EKG, chest x-ray. Patient was treated for her pain with [place] with improvement. X-ray shows no evidence of pneumothorax, pleural effusion, pneumonia. EKG reviewed and interpreted by Dr. Ma Rate/Rhythm: Sinus tachycardia, 101 bpm No ectopy, no ST elevations, normal axis. QRS, ST, T-waves: [No changes consistent w/ acute ischemia] Impression: [No evidence of ischemia or arrhythmia] Symptoms are likely secondary to anxiety versus costochondritis. Patient states that she is nervous due to her sister being in and out of the hospital. Low suspicion for acute myocardial infarction, pneumothorax, pneumonia, cardiac tamponade, pulmonary embolism, AAA, aortic dissection, Boerhaave's syndrome, cardiac dysrhythmias,meningitis, intracranial bleed, seizure, stroke, TIA or other emergent conditions. Patient's right-sided ear ache and headache is secondary to patient's right tooth ache with surrounding erythematous gums. Patient's physical exam include lungs which were clear to auscultation and a normal pulse oximetry. Bilateral ears pearly may. No tenderness to palpation of tragus or mastoid. Low suspicion for mastoiditis, otitis externa, otitis media. Patient is speaking in full sentences. There is a low suspicion for pneumonia, epiglottitis, sinusitis , peritonsillar abscess, Junior's angina, retropharyngeal abscess, meningitis, sepsis, acute abdomen or other emergent conditions. This case was discussed with my supervising physician, Dr. Ma who stated that he agreed with the management and discharge plan. Discharge medications: Tramadol, Penicillin VK Follow up with primary care physician in 1-2 days. Instructed patient to return to the ED sooner for any worsening symptoms. Patient's questions were answered. Patient understood and agreed with discharge plan. Patient discharged stable. Departure Diagnosis: Primary Impression: Toothache Additional Impression: Chest wall pain Condition: Stable Patient Instructions: Your Body's Response to Anxiety, Understanding Tooth Decay, Chest Wall Pain, Costochondritis, Dental Pain Referrals: PENDING SALE TO [facility] YOU HAVE RECEIVED A MEDICAL SCREENING EXAM AND THE RESULTS INDICATE THAT YOU DO NOT HAVE A CONDITION THAT REQUIRES URGENT TREATMENT IN THE EMERGENCY DEPARTMENT. FURTHER EVALUATION AND TREATMENT OF YOUR CONDITION CAN WAIT UNTIL YOU ARE SEEN IN YOUR DOCTORS OFFICE WITHIN THE NEXT 1-2 DAYS. IT IS YOUR RESPONSIBILITY TO MAKE AN APPOINTMENT FOR FOLOW-UP CARE. IF YOU HAVE A PRIMARY DOCTOR --you should call your primary doctor and schedule an appointment IF YOU DO NOT HAVE A PRIMARY DOCTOR YOU CAN CALL OUR PHYSICIAN REFERRAL HOTLINE AT IF YOU CAN NOT AFFORD TO SEE A PHYSICIAN YOU CAN CHOSE FROM THE FOLLOWING PENDING SALE TO [facility] [address] [facility] [address] [facility] [facility] [address] [facility] [address] [facility] [address]. [facility]. [address] [facility] YOU HAVE RECEIVED A MEDICAL SCREENING EXAM AND THE RESULTS INDICATE THAT YOU DO NOT HAVE A CONDITION THAT REQUIRES URGENT TREATMENT IN THE EMERGENCY DEPARTMENT. FURTHER EVALUATION AND TREATMENT OF YOUR CONDITION CAN WAIT UNTIL YOU ARE SEEN IN YOUR DOCTORS OFFICE WITHIN THE NEXT 1-2 DAYS. IT IS YOUR RESPONSIBILITY TO MAKE AN APPOINTMENT FOR FOLOW-UP CARE. IF YOU HAVE A PRIMARY DOCTOR --you should call your primary doctor and schedule and appointment IF YOU DO NOT HAVE A PRIMARY DOCTOR YOU CAN CALL OUR PHYSICIAN REFERRAL HOTLINE AT . IF YOU CAN NOT AFFORD TO SEE A PHYSICIAN YOU CAN CHOSE FROM THE FOLLOWING [facility] INSTITUTIONS: [facility] [address] [place] [address] [facility] [address] [place] [address] [facility] [address] [place] [address] [facility] URGENT CARE/SPECIALTIES [facility] DENTIST ([facility] walk in clinic) Additional Instructions: Call your primary care doctor and dentist TOMORROW for an appointment during the next 2-3 days.See the doctor sooner or return here if your condition worsens before your appointment time - difficulty swallowing, shortness of breath, weakness, dizziness, chest pain, vomiting, etc. DUTCH NEVES PA-C May 04, 2017 00:03 DUTCH NEVES PA-C May 04, 2017 00:03
== END 2017-05-03 23:36 | disposition home or self-care (01) ==
LOC: FTE 20:06
DX: K08.89 Other specified disorders of teeth and supporting structures (principal); R07.89 Other chest pain
CPT/HCPCS: 71010; 93005; Z7502; Z7610

== ENCOUNTER 2017-06-03 16:39 | Emergency (ER) | payer BC ==
[~2017-06-03] VITALS: Ht 160 cm; Wt 78.0 kg
[~2017-06-03 16:39] MED LIST changes: +PENI500T PO; +TRAM50TA2 PO
[2017-06-03 16:45] VITALS: Ht 160 cm; Wt 78.0 kg
--- NOTE | 2017-06-03 19:13 | ERA ---
ER Documentation Chief Complaint Date/Time DATE: 06/03/17 TIME: 19:12 Chief Complaint right shoulder pain HPI . The patient is a 56-year-old female, presenting to the ER because of right shoulder pain after she fell in June 03, 2017 She has been seen by her physician. She is requesting pain medication, complains of left right upper extremity pain, denies any new trauma. He was recently diagnosed with right breast cancer and had right mastectomy on March 21, 2017. She denies fever, cough, neck pain, chest pain, dyspnea, abdominal pain, vomiting. She does not smoke nor drink Past medical history: Diabetes mellitus Past surgical history: Hysterectomy, 2 , appendectomy, right mastectomy ROS All systems reviewed and are negative except as per history of present illness. Medications Home Meds Active Scripts Tramadol Hcl* (Ultram*) 50 Mg Tablet, 50 MG PO Q6H Y for PAIN, #10 TAB Prov:LEÍAS BUNCH MD 06/03/17 Tramadol HCl (Tramadol HCl) 50 Mg Tablet, 50 MG PO Q6, #20 TAB Prov:DUTCH NEVES PA-C 05/03/17 Penicillin V Potassium* (Penicillin V K*) 500 Mg Tab, 500 MG PO QID for 7 Days, TAB Prov:DUTCH NEVES PA-C 05/03/17 Ibuprofen* (Motrin*) 600 Mg Tab, 600 MG PO Q6, #30 TAB Prov:GUMARO ACOSTA 02/10/17 Hydrocodone/Acetaminophen (Davidson 5-325 Tablet) 1 Each Tablet, 1 EACH PO Q8 for 3 Days, #10 TAB Prov:BERT FINLEY DO 01/08/17 Oxycodone HCl/Acetaminophen (Percocet 5-325 mg Tablet) 1 Each Tablet, 1 EACH PO QID, #18 TAB Prov:MAK CRAIG MD 06/28/16 Ibuprofen* (Motrin*) 600 Mg Tab, 600 MG PO Q6, #20 TAB Prov:MANUEL MCGOWAN NP 06/16/16 Hydrocodone/Acetaminophen (Davidson 5-325 Tablet) 1 Each Tablet, 1 TAB PO Q6H Y for PAIN, #7 TAB Prov:MANUEL MCGOWAN NP 06/16/16 Hydrocodone/Acetaminophen (Davidson 5-325 Tablet) 1 Each Tablet, 1 TAB PO Q6H Y for PAIN, #6 TAB Prov:VALERIE SMALLWOOD, TALENT DEVELOPMENT MANAGER 06/09/16 Naproxen* (Naprosyn*) 500 Mg Tablet, 500 MG PO BID Y for PAIN AND/OR INFLAMMATION, #30 TAB Prov:PAPITO BLANTON PA-C 06/02/16 Hydrocodone/Acetaminophen (Davidson 5-325 Tablet) 1 Each Tablet, 1 TAB PO Q6H Y for PAIN, #10 TAB Prov:PAPITO BLANTON PA-C 06/02/16 Oxycodone HCl/Acetaminophen (Percocet 5-325 mg Tablet) 1 Each Tablet, 1 EACH PO BID, #15 TAB Prov:ROSA ELENA RENO PA-C 05/29/16 Hydrocodone/Acetaminophen (Davidson 5-325 Tablet) 1 Each Tablet, 1 TAB PO Q6H Y for PAIN, #20 TAB Prov:ROSA ELENA RENO PA-C 05/20/16 Allergies Allergies: Coded Allergies: No Known Allergy (Unverified , 06/03/17) PMhx/Soc History of Surgery: Yes (PARTIAL HYSTERECTOMY, C-SEC X2,CYST REMOVED, APPENDECTOMY, RT MASTECTOMY ) Anesthesia Reaction: No Hx Neurological Disorder: No Hx Respiratory Disorders: No Hx Cardiac Disorders: No Hx Psychiatric Problems: No Hx Miscellaneous Medical Probl: No Hx Alcohol Use: No Hx Substance Use: No Hx Tobacco Use: No Physical Exam Vitals Vital Signs Date Time Temp Pulse Resp B/P Pulse Ox O2 Delivery O2 Flow Rate FiO2 06/03/17 20:46 79 18 159/76 98 Room Air 06/03/17 16:45 98.1 75 18 130/75 99 Physical Exam Const: No acute distress. Head: Atraumatic. Eyes: Normal Conjunctiva. ENT: Normal External Ears, Nose and Mouth. Neck: Full range of motion. No meningismus. Resp: Clear to auscultation bilaterally. Cardio: Regular rate and rhythm. Abd: Soft, non distended, normal bowel sounds, non tender. Skin: No petechiae or rashes. Back: No midline or flank tenderness. Ext: Mild and vague right shoulder tenderness, no erythema, no ecchymosis, no crepitus Neur: Awake and alert. No focal deficit Psych: Normal Mood and Affect. Results 24 hrs Current Medications Medications (Trade) Dose Ordered Sig/Melissa Route PRN Reason Start Time Stop Time Status Last Admin Dose Admin Acetaminophen/ Hydrocodone Bitart (Davidson ()) 1 tab ONCE ONCE PO 06/03/17 19:30 06/03/17 19:31 DC 06/03/17 19:28 Ondansetron HCl (Zofran Odt) 4 mg ONCE STAT ODT 06/03/17 19:21 06/03/17 19:23 DC 06/03/17 19:28 Procedures/MDM [place] [id number] Radiology Main Line: [phone] DIAGNOSTIC IMAGING REPORT Patient: PING BONILLA : 1960 Age: 56 Sex: F MR #: [id number] DOS: 06/03/171920 Ordering MD: ELÍAS BUNCH MD Location: [facility] Room/Bed: PROCEDURE: XR Shoulder. CLINICAL INDICATION: 56-year of age, female. Right shoulder pain. TECHNIQUE: Three views of the right shoulder. Frontal views in internal and external rotation and transscapular Y view. COMPARISON: None available FINDINGS: Negative for evidence of acute fracture or dislocation. There is limited range of motion in internal and external rotation. Acromioclavicular joint appears normal. Coracoclavicular interval appears normal. There are no periarticular calcifications. The visualized lung is clear. IMPRESSION: Negative for evidence of acute fracture or dislocation of the right shoulder. There is limited range of motion in internal and external rotation. Negative for calcifications over the tendons of the rotator cuff. RPTAT: HCTS Physician Faina Date Time Electronically viewed and signed by Physician Faina on 06/03/2017 20: 29 CS/ CC: ELÍAS BUNCH MD [place] [id number] Radiology Main Line: [phone] DIAGNOSTIC IMAGING REPORT Patient: PING BONILLA : 1960 Age: 56 Sex: F [id number]: 06/03/171920 Ordering MD: ELÍAS BUNCH MD Location: [facility] Room/Bed: PROCEDURE: Right upper extremity venous ultrasound CLINICAL INDICATION: Right arm pain and swelling, deep venous thrombosis TECHNIQUE: Juarez scale, color doppler, spectral doppler ultrasound imaging of the venous system of the right upper extremity. Augmentation maneuvers were utilized. COMPARISON: No prior studies are available for comparison. FINDINGS: RIGHT: Internal jugular vein: Patent. Subclavian vein: Patent. Axillary vein: Patent. Brachial vein: Patent. Basilic vein: Patent. Cephalic vein: Patent. Radial vein: Patent. Ulnar vein: Patent. IMPRESSION: No evidence of a deep vein thrombosis involving the right upper extremity. RPTAT: AADD .Franck Zelaya MD, MD Date Time Electronically viewed and signed by .Franck Zelaya MD, MD on 06/03/2017 20:08 .B/ CC: ELÍAS BUNCH MD MEDICAL MAKING DECISION: The patient is a 56-year-old female, presenting to the ER because of acute on chronic right shoulder pain She was treated with Davidson 10 mg p.o. for pain and Zofran ODT for nausea with good response The differential diagnoses considered include but are not limited to internal derangement of the right shoulder, DVT, cellulitis Departure Diagnosis: Primary Impression: Right shoulder pain Condition: Good Comments She was discharged with Ultram and advised that she may need MRI for further evaluation of her right shoulder X The patient's blood pressure was elevated (>120/80) but appears stable without evidence of hypertension emergency or urgency. The patient was counseled about the risks of hypertension and urged to pursue outpatient monitoring and therapy within a week with their primary care physician. ELÍAS BUNCH MD Jun 03, 2017 19:13
[2017-06-03] MEDS ORDERED: ONDANSETRON (ODT) 4 MG TAB ODT STA (19:21)
[2017-06-03] MEDS ORDERED: HYDROCODONE/APAP (10/325) TAB PO ONE (19:30)
--- NOTE | 2017-06-03 20:08 | RADRPT ---
PROCEDURE: Right upper extremity venous ultrasound CLINICAL INDICATION: Right arm pain and swelling, deep venous thrombosis TECHNIQUE: Juarez scale, color doppler, spectral doppler ultrasound imaging of the venous system of the right upper extremity. Augmentation maneuvers were utilized. COMPARISON: No prior studies are available for comparison. FINDINGS: RIGHT: Internal jugular vein: Patent. Subclavian vein: Patent. Axillary vein: Patent. Brachial vein: Patent. Basilic vein: Patent. Cephalic vein: Patent. Radial vein: Patent. Ulnar vein: Patent. IMPRESSION: No evidence of a deep vein thrombosis involving the right upper extremity. RPTAT: AADD .Franck Zelaya MD, MD Date Time Electronically viewed and signed by .Franck Zelaya MD, on 06/03/2017 20:08 .B/
--- NOTE | 2017-06-03 20:29 | RADRPT ---
PROCEDURE: XR Shoulder. CLINICAL INDICATION: 56-year of age, female. Right shoulder pain. TECHNIQUE: Three views of the right shoulder. Frontal views in internal and external rotation and transscapular Y view. COMPARISON: None available FINDINGS: Negative for evidence of acute fracture or dislocation. There is limited range of motion in internal and external rotation. Acromioclavicular joint appears normal. Coracoclavicular interval appears normal. There are no periarticular calcifications. The visualized lung is clear. IMPRESSION: Negative for evidence of acute fracture or dislocation of the right shoulder. There is limited range of motion in internal and external rotation. Negative for calcifications over the tendons of the ro tator cuff. RPTAT: HCTS Physician Faina Date Time Electronically viewed and signed by Physician Faina on 06/03/2017 20:29 CS/
[2017-06-03] MEDS ORDERED: TRAM-40 PO (20:40)
[2017-06-03 20:46] VITALS: BP 159/76; PULSE 79; RESP 18
== END 2017-06-03 20:47 | disposition home or self-care (01) ==
LOC: FTE 16:39
DX: M25.511 Pain in right shoulder (principal); E11.9 Type 2 diabetes mellitus without complications
CPT/HCPCS: 73030; 93971; Z7502; Z7610

== ENCOUNTER 2017-09-15 15:09 | Emergency (ER) | END 2017-09-15 18:51 | disposition home or self-care (01) ==

== ENCOUNTER 2017-10-04 09:33 | Emergency (ER) | END 2017-10-04 16:35 | disposition home or self-care (01) ==

== ENCOUNTER 2017-10-25 16:19 | Emergency (ER) | END 2017-10-25 20:17 | disposition home or self-care (01) ==

== ENCOUNTER 2017-10-27 14:01 | Emergency (ER) | END 2017-10-27 20:38 | disposition home or self-care (01) ==

== ENCOUNTER 2018-08-08 17:47 | Emergency (ER) | END 2018-08-08 19:54 | disposition home or self-care (01) ==

== ENCOUNTER 2018-08-10 13:45 | Emergency (ER) | END 2018-08-10 14:50 | disposition home or self-care (01) ==

== ENCOUNTER 2018-08-31 13:30 | Emergency (ER) | payer BC ==
[~2018-08-31] VITALS: Ht 154.9 cm; Wt 58.7 kg
[~2018-08-31 13:30] MED LIST changes: +ANAS1TAB PO; +ATOR10TA65 PO; +GABA300C16 PO; -HYDR-906 PO; -IBUP-1542 PO; +INSU100I33 SC; +LISI-313 PO; +MTF1000T PO; -NAPR-260 PO; -OXYC-279 PO; -PENI500T PO; +PROP10TA6 PO; +TRAM50TA PO; -TRAM50TA2 PO
[2018-08-31 13:41] VITALS: Ht 154.9 cm; Wt 58.7 kg
[2018-08-31] MEDS ORDERED: KETOROLAC 30 MG INJ IM STA (16:11)
[2018-08-31] MEDS ORDERED: IBUP-1542 PO (16:13)
--- NOTE | 2018-08-31 16:19 | ERD ---
ER Documentation Chief Complaint Chief Complaint maxi feet swelling for several wks- claims hx of a "heart" problem;denies CP HPI 58-year-old woman with history of hypertension, diabetes, chronic foot pain, and breast cancer status post mastectomy, radiation and chemotherapy presents to the ED complaining of continued bilateral, sharp and achy foot pain. Denies trauma or injury. Patient has had these symptoms multiple times in the past and has been seen here multiple times for similar symptoms. No relieving or exacerbating factors. Patient with a long history of pain related issues and similar symptoms with multiple ED visits. Chronic right shoulder pain for which she takes tramadol but says this is not helped for her toe pain. Otherwise asymptomatic. Denies chest pain, palpitations, shortness of breath, cough, abdominal pain, nausea or vomiting. ROS All systems reviewed and are negative except as per history of present illness. Medications Home Meds Active Scripts Ibuprofen* (Motrin*) 600 Mg Tab, 600 MG PO Q8 PRN for PAIN AND/OR INFLAMMATION, #30 TAB Prov:CEDRICK THAO MD 08/31/18 Reported Medications Gabapentin* (Gabapentin*) 300 Mg Capsule, 300 MG PO QHS, #60 CAP 08/08/18 Anastrozole* (Arimidex*) 1 Mg Tablet, 1 MG PO DAILY, #30 TAB 08/08/18 Propranolol Hcl* (Propranolol Hcl*) 10 Mg Tablet, 5 MG PO BID, TAB 08/08/18 Lisinopril* (Lisinopril*) 5 Mg Tablet, 5 MG PO DAILY, #30 TAB 08/08/18 Atorvastatin Calcium (Atorvastatin Calcium) 10 Mg Tablet, 10 MG PO QHS, #30 TAB 08/08/18 Insulin Glargine,Hum.rec.anlog (Basaglar Kwikpen U-100) 100 Unit/1 Ml Insuln.pen, 20 UNIT SC QPM, EA 08/08/18 Metformin* (Glucophage*) 1,000 Mg Tablet, 1000 MG PO BID, #60 TAB 08/08/18 Tramadol Hcl* (Ultram*) 50 Mg Tablet, 50 MG PO BID PRN for PAIN, TAB 10/25/17 Allergies Allergies: Coded Allergies: No Known Allergy (Unverified , 08/31/18) PMhx/Soc Chronic pain syndrome, hypertension, diabetes mellitus, breast carcinoma History of Surgery: Yes (PARTIAL HYSTERECTOMY, C-SEC X2,CYST REMOVED, APPENDECTOMY, RT MASTECTOMY ) Anesthesia Reaction: No Hx Neurological Disorder: No Hx Respiratory Disorders: No Hx Cardiac Disorders: No Hx Psychiatric Problems: No Hx Miscellaneous Medical Probl: Yes (DM) Hx Alcohol Use: No Hx Substance Use: No Hx Tobacco Use: No FmHx Family History: No diabetes Physical Exam Vitals Vital Signs Date Temp Pulse Resp B/P (MAP) Pulse Ox O2 O2 Flow FiO2 Time Delivery Rate 08/31/18 97.0 115 20 114/75 98 13:41 (88) Physical Exam Const: No acute distress, afebrile Head: Atraumatic Eyes: Normal Conjunctiva ENT: Normal External Ears, Nose and Mouth. Neck: Full range of motion. No meningismus. Resp: Clear to auscultation bilaterally Cardio: Regular rate and rhythm, no murmurs Abd: Soft, non tender, non distended. Skin: No petechiae or rashes Back: No midline or flank tenderness Ext: No cyanosis, or edema Neur: Awake and alert x3, no focal deficits or facial asymmetry Psych: Normal Mood and Affect Results 24 hrs Current Medications Medications Dose Sig/Melissa Start Time Status Last (Trade) Ordered Route PRN Stop Time Admin Dose Reason Admin Ketorolac 30 mg ONCE STAT 08/31/18 DC Tromethamine IM 16:11 (Toradol) 08/31/18 16:12 Procedures/MDM Patient was initially tachycardic although this resolved while in the ER. She has complaints of mild bilateral foot pain today and she states this is happened multiple times in the past usually on a weekly basis. She has been using tramadol without relief. I administered Toradol 30 mg IM x1. Patient feels much better at this time, and vital signs are normal, symptoms hav e improved. I did give strict instructions to return to the ED if symptoms continue or worsen, patient will otherwise follow-up with primary care physician. Patient understood instructions and agreed to plan. Disclaimer: Inadvertent spelling and grammatical errors are likely due to EHR/dictation software use and do not reflect on the overall quality of patient care. Also, please note that the electronic time recorded on this note does not necessarily reflect the actual time of the patient encounter. Departure Diagnosis: Primary Impression: Foot pain Laterality: bilateral Qualified Codes: M79.671 - Pain in right foot; M79.672 - Pain in left foot Condition: Good Patient Instructions: Chronic Pain Referrals: REMA BISHOP (PCP) CEDRICK THAO MD Aug 31, 2018 16:19
[2018-08-31 16:31] VITALS: BP 136/74; PULSE 86; RESP 20
[2018-09-04] MEDS ORDERED: FURO-110 PO (18:39)
== END 2018-08-31 16:36 | disposition home or self-care (01) ==
LOC: E/R 13:30
DX: M79.671 Pain in right foot (principal); M79.672 Pain in left foot; I10 Essential (primary) hypertension; E11.9 Type 2 diabetes mellitus without complications; C50.919 Malignant neoplasm of unspecified site of unspecified female breast; Z79.4 Long term (current) use of insulin
CPT/HCPCS: 96372; J1885; Z7502

== ENCOUNTER 2018-10-13 16:52 | Inpatient (IN) | payer BC ==
[~2018-10-13] VITALS: Ht 154.9 cm; Wt 59.6 kg
[~2018-10-13 16:52] MED LIST changes: +FURO-110 PO; +IBUP-1542 PO
--- NOTE | 2018-10-13 23:14 | ERD ---
ER Documentation Chief Complaint Chief Complaint L ARM NUMBNESS SINCE 529 TODAY HPI 58-year-old female with a history of diabetes and breast cancer status post right mastectomy, chemo, and radiation presenting with acute onset of left arm and leg numbness that started this morning around 5:30 AM. The symptoms have been continuous. No other associated symptoms. She denies any acute headache, vision disturbance, difficulty walking, dizziness. She states that she is in remission. ROS All systems reviewed and are negative except as per history of present illness. Medications Home Meds Active Scripts Furosemide* (Lasix*) 20 Mg Tablet, 20 MG PO DAILY for 5 Days, TAB Prov:HALIE PURVIS MD 09/04/18 Ibuprofen* (Motrin*) 600 Mg Tab, 600 MG PO Q8 PRN for PAIN AND/OR INFLAMMATION, #30 TAB Prov:CEDRICK THAO MD 08/31/18 Reported Medications Gabapentin* (Gabapentin*) 300 Mg Capsule, 300 MG PO QHS, #60 CAP 08/08/18 Anastrozole* (Arimidex*) 1 Mg Tablet, 1 MG PO DAILY, #30 TAB 08/08/18 Propranolol Hcl* (Propranolol Hcl*) 10 Mg Tablet, 5 MG PO BID, TAB 08/08/18 Lisinopril* (Lisinopril*) 5 Mg Tablet, 5 MG PO DAILY, #30 TAB 08/08/18 Atorvastatin Calcium (Atorvastatin Calcium) 10 Mg Tablet, 10 MG PO QHS, #30 TAB 08/08/18 Insulin Glargine,Hum.rec.anlog (Basaglar Kwikpen U-100) 100 Unit/1 Ml Insuln.pen, 20 UNIT SC QPM, EA 08/08/18 Metformin* (Glucophage*) 1,000 Mg Tablet, 1000 MG PO BID, #60 TAB 08/08/18 Tramadol Hcl* (Ultram*) 50 Mg Tablet, 50 MG PO BID PRN for PAIN, TAB 10/25/17 Allergies Allergies: Coded Allergies: No Known Allergy (Unverified , 09/21/18) PMhx/Soc History of Surgery: Yes (R-BREAST MASTECTOMY) Anesthesia Reaction: No Hx Neurological Disorder: No Hx Respiratory Disorders: No Hx Cardiac Disorders: No Hx Psychiatric Problems: No Hx Miscellaneous Medical Probl: Yes (Breast cancer status post treatment, DM) Hx Alcohol Use: No Hx Substance Use: No Hx Tobacco Use: No Smoking Status: Never smoker FmHx Family History: No coronary disease Physical Exam Vitals Vital Signs Date Temp Pulse Resp B/P (MAP) Pulse Ox O2 O2 Flow FiO2 Time Delivery Rate 10/13/18 98.0 107 18 132/82 98 16:59 (99) Physical Exam Const: No acute distress, well-appearing, nontoxic Head: Atraumatic Eyes: Normal Conjunctiva, PERRLA, EOMI ENT: Normal External Ears, Nose and Mouth. Neck: Full range of motion. No meningismus. No JVD Resp: Clear to auscultation bilaterally Cardio: Regular rate and rhythm, no murmurs. 2+ distal pulses in all 4 extremities Abd: Soft, non tender, non distended. Normal bowel sounds Skin: No petechiae or rashes Back: No midline or flank tenderness Ext: No cyanosis, or edema Neur: Awake and alert, oriented x3, normal speech, cranial nerves intact, strength 5 out of 5 in all 4 extremities. Sensations diminished to painful stim jorje in the left upper extremity but normal in bilateral lower extremities. Psych: Normal Mood and Affect Result Diagram: 10/13/18203410/13/182034 Results 24 hrs Laboratory Tests Test 10/13/18 20:35 10/13/18 23:01 White Blood Count 3.8 10^3/ul Red Blood Count 4.40 10^6/ul Hemoglobin 12.1 g/dl Hematocrit 38.1 % Mean Corpuscular Volume 86.6 fl Mean Corpuscular Hemoglobin 27.5 pg Mean Corpuscular Hemoglobin Concent 31.8 g/dl Red Cell Distribution Width 13.6 % Platelet Count 217 10^3/UL Mean Platelet Volume 10.8 fl Immature Granulocytes % 0.300 % Neutrophils % 56.8 % Lymphocytes % 31.3 % Monocytes % 9.5 % Eosinophils % 1.6 % Basophils % 0.5 % Nucleated Red Blood Cells % 0.0 /100WBC Immature Granulocytes # 0.010 10^3/ul Neutrophils # 2.2 10^3/ul Lymphocytes # 1.2 10^3/ul Monocytes # 0.4 10^3/ul Eosinophils # 0.1 10^3/ul Basophils # 0.0 10^3/ul Nucleated Red Blood Cells # 0.0 10^3/ul Prothrombin Time 12.2 Sec Prothrombin Time Ratio 1.0 INR International Normalized Ratio 0.89 Activated Partial Thromboplast Time 28.9 Sec Sodium Level 139 mmol/L Potassium Level 3.9 mmol/L Chloride Level 102 mmol/L Carbon Dioxide Level 30 mmol/L Anion Gap 7 Blood Urea Nitrogen 7 mg/dl Creatinine 0.50 mg/dl Est Glomerular Filtrat Rate mL/min > 60 mL/min Glucose Level 224 mg/dl Calcium Level 9.6 mg/dl Troponin I < 0.012 ng/ml Bedside Glucose 142 mg/dL Procedures/MDM EMERGENT LABS AND DIAGNOSTIC STUDIES: Lab Results above were reviewed and interpreted by me. CBC: Mild leukopenia. No anemia, thrombocytopenia, thrombocytosis, or evidence of infection CMP: No evidence of electrolyte abnormality, renal failure, hypoglycemia Troponin within normal limits, not indicative of cardiac ischemia 12-lead EKG was interpreted by Magnolia Nails MD: Normal Sinus Rhythm Normal axis Normal intervals No acute ST or T wave changes suggestive of acute ischemia or STEMI. Radiology Results as interpreted by Radiology below were reviewed by Jermaine Nails MD: Chest x-ray shows no acute abnormalities CT head pending Initial Nursing notes reviewed. Previous Medical Records requested via the Electronic Health Record. EMERGENCY DEPARTMENT COURSE / MEDICAL DECISION MAKING: Patient is presenting with neurological symptoms with left-sided numbness. Given her history of cancer, she is at increased risk for an intracranial mass. I have a lower suspicion for stroke. CT head was done and is pending. Labs did not show any significant abnormalities. I do not suspect aortic or carotid dissection. Patient will require admission for further neurologic workup including MRI. Patient signed out to the oncoming ED doctor will follow up on her head CT and admit her to the appropriate team. Departure Diagnosis: Primary Impression: Left sided numbness Condition: MAX Santamaria MD Oct 13, 2018 23:14
[2018-10-14] VITALS (14 sets, daily range): BP systolic 114–142; BP diastolic 70–79; PULSE 84–126; RESP 18–20; Ht 154.9 cm; Wt 59.6 kg
[2018-10-14] MEDS ORDERED: ONDANSETRON 4 MG INJ IV PRN (00:30)
[2018-10-14] MEDS ORDERED: ACETAMINOPHEN 325 MG TAB PO PRN (00:30)
[2018-10-14] MEDS ORDERED: NACL 0.9% 3 ML SYG IV SCH (00:30)
[2018-10-14] MEDS ORDERED: DEXTROSE 50% 50 ML SYRINGE IV PRN ×2 (01:00)
[2018-10-14] MEDS ORDERED: GLUCOSE GEL 15 GRAM TUBE PO PRN ×2 (01:00)
[2018-10-14] MEDS ORDERED: GLUCAGON 1 MG INJ IM PRN (01:00)
[2018-10-14] MEDS ORDERED: GLUCOSE GEL 15 GRAM TUBE BUCCAL PRN (01:00)
[2018-10-14] MEDS: traMADol 50 MG TAB PO PRN (01:06)
[2018-10-14] MEDS: ACCU-CHEK XX SCH (02:00)
[2018-10-14] MEDS: INSULIN ASPART [NOVOLOG] 3 ML PEN SC SCH ×5 (02:50→20:32)
[2018-10-14] MEDS: HYDROCODONE/APAP (5/325) TAB PO PRN ×3 (05:26→20:26)
--- NOTE | 2018-10-14 06:21 | HP ---
Date/Time of Note Date/Time of Note DATE: 10/14/18 TIME: 06:18 Assessment/Plan VTE Prophylaxis Pharmacological prophylaxis: heparin Lines/Catheters IV Catheter Type (from Nrs): Saline Lock Urinary Cath still in place: No Assessment/Plan Assessment/Plan 1. TIA, rule out stroke -Head CT negative for acute findings -Aspirin, statin -Frequent neuro checks -MRI of the brain and carotid Doppler ultrasound as well as 2D echo -Neurology consult -PT eval 2. History of breast cancer, status post mastectomy and chemo/radiation. -Continue anastrozole 3. Hypertension: Continue home meds 4. Dyslipidemia: Continue statin 5. Diabetes: Insulin Result Diagram: 10/13/18203410/13/182034 Results 24hrs Laboratory Tests Test 10/13/18 20:35 10/13/18 23:01 10/14/18 01:40 10/14/18 01:51 White Blood Count 3.8 #L Red Blood Count 4.40 Hemoglobin 12.1 Hematocrit 38.1 Mean Corpuscular 86.6 Volume Mean Corpuscular 27.5 L Hemoglobin Mean Corpuscular 31.8 L Hemoglobin Concent Red Cell 13.6 Distribution Width Platelet Count 217 Mean Platelet Volume 10.8 H Immature 0.300 Granulocytes % Neutrophils % 56.8 Lymphocytes % 31.3 Monocytes % 9.5 Eosinophils % 1.6 Basophils % 0.5 Nucleated Red Blood 0.0 Cells % Immature 0.010 Granulocytes # Neutrophils # 2.2 Lymphocytes # 1.2 Monocytes # 0.4 Eosinophils # 0.1 Basophils # 0.0 Nucleated Red Blood 0.0 Cells # Prothrombin Time 12.2 Prothrombin Time 1.0 Ratio INR International 0.89 Normalized Ratio Activated 28.9 Partial Thromboplast Time Sodium Level 139 Potassium Level 3.9 Chloride Level 102 Carbon Dioxide Level 30 Anion Gap 7 Blood Urea Nitrogen 7 Creatinine 0.50 Est Glomerular > 60 Filtrat Rate mL/min Glucose Level 224 H Calcium Level 9.6 Troponin I < 0.012 < 0.012 Bedside Glucose 142 204 Creatine Kinase 48 Creatine Kinase 0.6 Index Creatinine Kinase MB 0.28 (Mass) Test 10/14/18 02:46 Bedside Glucose 184 HPI/ROS Admit Date/Time Admit Date/Time Oct 13, 2018 at 23:45 Hx of Present Illness This is a 58-year-old female with a history of hypertension, dyslipidemia, type 2 diabetes, insulin-dependent and history of breast cancer status post mastectomy and chemo/radiation. Patient presents the ER complaining of left upper and lower extremity numbness. She said this been going on for about a year since her chemo treatment ended. She denied slurred speech, focal weakness, facial droop, visual disturbance or headache. When she presented to ER, vitals were stable. Head CT was negative for acute findings. PMH/Family/Social Past Medical History Medications Current Medications IV Flush (NS 3 ml) 3 ml PER PROTOCOL IV ; Start 10/14/18 at 00:30 Ondansetron HCl (Zofran Inj) 4 mg Q6H PRN IV NAUSEA/VOMITING; Start 10/14/18 at 00:30 Aspirin (Aspirin) 81 mg DAILY PO ; Start 10/14/18 at 09:00 Acetaminophen (Tylenol Tab) 650 mg Q6H PRN PO .PAIN 1-3 OR TEMP; Start 10/14/18 at 00:30 Heparin Sodium (Porcine) (Heparin (5000 Units/1ml)) 5,000 unit Q12 SC ; Start 10/14/18 at 09:00 Diagnostic Test (Pha) (Accu-Chek) 1 ea 02 XX ; Start 10/14/18 at 02:00 Insulin Detemir (Levemir) 10 units DAILY@0800 SC ; Start 10/14/18 at 08:00 Anastrozole (Arimidex) 1 mg DAILY PO ; Start 10/14/18 at 09:00 Atorvastatin Calcium (Lipitor) 10 mg QHS PO ; Start 10/14/18 at 21:00 Furosemide (Lasix) 20 mg DAILY PO ; Start 10/14/18 at 09:00 Gabapentin (Neurontin) 300 mg QHS PO ; Start 10/14/18 at 21:00 Lisinopril (Zestril) 5 mg DAILY PO ; Start 10/14/18 at 09:00 Propranolol HCl (Inderal) 5 mg BID PO ; Start 10/14/18 at 09:00 Tramadol HCl (Ultram) 50 mg BID PRN PO PAIN Last administered on 10/14/18at 01:06; Admin Dose 50 MG; Start 10/14/18 at 00:30 Miscellaneous Information 1 ea NOTE XX ; Start 10/14/18 at 01:00 Glucose (Glutose) 15 gm Q15M PRN PO DECREASED GLUCOSE; Start 10/14/18 at 01:00 Glucose (Glutose) 22.5 gm Q15M PRN PO DECREASED GLUCOSE; Start 10/14/18 at 01:00 Dextrose (D50w Syringe) 25 ml Q15M PRN IV DECREASED GLUCOSE; Start 10/14/18 at 01:00 Dextrose (D50w Syringe) 50 ml Q15M PRN IV DECREASED GLUCOSE; Start 10/14/18 at 01:00 Glucagon (Glucagen) 1 mg Q15M PRN IM DECREASED GLUCOSE; Start 10/14/18 at 01:00 Glucose (Glutose) 15 gm Q15M PRN BUCCAL DECREASED GLUCOSE; Start 10/14/18 at 01:00 Insulin Aspart (Novolog Insulin Pen) NOVOLOG *MILD* ALGORITHM WITH MEALS BEDTIME SC Last administered on 10/14/18at 02:50; Admin Dose 1 UNIT; Start 10/14/18 at 02:30 Acetaminophen/ Hydrocodone Bitart (Ford (5/325)) 1 tab Q6H PRN PO MODERATE PAIN LEVEL 4-6 Last administered on 10/14/18at 05:26; Admin Dose 1 TAB; Start 10/14/18 at 04:00 Coded Allergies: No Known Allergy (Unverified , 09/21/18) Past Surgical History Past Surgical Hx: no surgical history Social History Smoking Status: Former smoker Exam/Review of Systems Vital Signs Vitals Vital Signs Date Temp Pulse Resp B/P (MAP) Pulse Ox O2 O2 Flow FiO2 Time Delivery Rate 10/14/18 126 05:18 10/14/18 97.7 18 120/76 94 Room Air 03:03 (91) Exam Exam Past Surgical History Past Surgical Hx: other (see hpi) Family History Significant Family History: no pertinent family hx Social History Alcohol Use: other Smoking Status: Unknown if ever smoked Drug Use: none, other Exam Constitutional: other (no acute distress) Head: normocephalic, atraumatic Eyes: PERRL Respiratory: clear to auscultation Cardiovascular: regular rate and rhythm Gastrointestinal: soft MICHELA CASTILLO MD Oct 14, 2018 06:20
[2018-10-14] MEDS ORDERED: INSULIN DETEMIR [LEVEMIR] (100 UNITS/ML) SYG SC SCH (08:00)
[2018-10-14] MEDS ORDERED: INSULIN ASPART [NOVOLOG] 3 ML PEN SC SCH (08:00)
[2018-10-14] MEDS: FUROSEMIDE 20 MG TAB PO SCH (08:30)
[2018-10-14] MEDS: ASPIRIN 81 MG TAB PO SCH (08:30)
[2018-10-14] MEDS ORDERED: PROPRANOLOL 10 MG TAB PO SCH (09:00)
[2018-10-14] MEDS ORDERED: LISINOPRIL 5 MG TAB PO SCH (09:00)
[2018-10-14] MEDS: HEPARIN 5,000 UNIT/1 ML VIAL SC SCH ×2 (09:01→20:36)
[2018-10-14] MEDS: ANASTROZOLE 1 MG TAB PO SCH (10:46)
--- NOTE | 2018-10-14 11:14 | PN ---
Date/Time of Note Date/Time of Note DATE: 10/14/18 TIME: 11:09 Assessment/Plan VTE Prophylaxis SCD applied (from Nsg): No SCD contraindicated: other Pharmacological prophylaxis: heparin Lines/Catheters IV Catheter Type (from Nrs): Saline Lock Urinary Cath still in place: No Assessment/Plan Hospital Course S: Patient seen by speech therapy team this morning, presently work with physi odalys therapy. Awaiting MRI of the brain to be performed. O: VS - see below PE: Gen: lying in bed, No acute distress, well-appearing, Head: Atraumatic Eyes: Normal Conjunctiva, PERRLA, EOMI ENT: Normal External Ears, Nose and Mouth. Neck: Full range of motion. No meningismus. No JVD Resp: Clear to auscultation bilaterally Cardio: Regular rate and rhythm, no murmurs. Abd: Soft, non tender, non distended. Normal bowel sounds Ext: No cyanosis, or edema Neur: No apparent focal deficits Assessment/Plan: 58-year-old female who presents with left-sided weakness symp toms, with a prior history of breast cancer and diabetes. 1. Left-sided weakness symptoms: Rule out TIA, rule out stroke-Head CT negative for acute findings -For now continue aspirin, statin, and frequent neuro checks -Follow-up the results of MRI of the brain and carotid Doppler ultrasound as well as 2D echo -If symptoms worsen or there are any acute findings, will get neurology co nsult -Continue PT eval, ST, OT 2. History of breast cancer, status post mastectomy and chemo/radiation. -Monitor for now, continue anastrozole 3. Hypertension: Stable - Allow for permissive hypertension for now 4. Dyslipidemia: Lipid panel noted - continue statin 5. Diabetes: A1c is 7.1 -Continue sliding scale insulin, add home Levemir Result Diagram: 10/14/1862110/14/18621 Results 24hrs Laboratory Tests Test 10/13/18 20:35 10/13/18 23:01 10/14/18 01:40 10/14/18 01:51 White Blood Count 3.8 #L Red Blood Count 4.40 Hemoglobin 12.1 Hematocrit 38.1 Mean Corpuscular 86.6 Volume Mean Corpuscular 27.5 L Hemoglobin Mean Corpuscular 31.8 L Hemoglobin Concent Red Cell 13.6 Distribution Width Platelet Count 217 Mean Platelet Volume 10.8 H Immature 0.300 Granulocytes % Neutrophils % 56.8 Lymphocytes % 31.3 Monocytes % 9.5 Eosinophils % 1.6 Basophils % 0.5 Nucleated Red Blood 0.0 Cells % Immature 0.010 Granulocytes # Neutrophils # 2.2 Lymphocytes # 1.2 Monocytes # 0.4 Eosinophils # 0.1 Basophils # 0.0 Nucleated Red Blood 0.0 Cells # Prothrombin Time 12.2 Prothrombin Time 1.0 Ratio INR International 0.89 Normalized Ratio Activated 28.9 Partial Thromboplast Time Sodium Level 139 Potassium Level 3.9 Chloride Level 102 Carbon Dioxide Level 30 Anion Gap 7 Blood Urea Nitrogen 7 Creatinine 0.50 Est Glomerular > 60 Filtrat Rate mL/min Glucose Level 224 H Calcium Level 9.6 Troponin I < 0.012 < 0.012 Bedside Glucose 142 204 Creatine Kinase 48 Creatine Kinase 0.6 Index Creatinine Kinase MB 0.28 (Mass) Test 10/14/18 02:46 10/14/18 06:22 10/14/18 08:27 Bedside Glucose 184 212 White Blood Count 4.3 L Red Blood Count 4.20 Hemoglobin 11.6 L Hematocrit 35.7 L Mean Corpuscular 85.0 Volume Mean Corpuscular 27.6 L Hemoglobin Mean Corpuscular 32.5 Hemoglobin Concent Red Cell 13.7 Distribution Width Platelet Count 198 Mean Platelet Volume 10.0 Immature 0.200 Granulocytes % Neutrophils % 61.5 Lymphocytes % 25.5 Monocytes % 11.2 H Eosinophils % 1.4 Basophils % 0.2 Nucleated Red Blood 0.0 Cells % Immature 0.010 Granulocytes # Neutrophils # 2.6 Lymphocytes # 1.1 Monocytes # 0.5 Eosinophils # 0.1 Basophils # 0.0 Nucleated Red Blood 0.0 Cells # Sodium Level 142 Potassium Level 3.7 Chloride Level 107 Carbon Dioxide Level 28 Anion Gap 7 Blood Urea Nitrogen 9 Creatinine 0.54 Est Glomerular > 60 Filtrat Rate mL/min Glucose Level 174 Hemoglobin A1c 7.1 H Calcium Level 9.2 Magnesium Level 2.0 Total Bilirubin 0.1 L Direct Bilirubin 0.00 Indirect Bilirubin 0.1 Aspartate Amino 18 Transf (AST/SGOT) Alanine 18 Aminotransferase (AL T/SGPT) Alkaline Phosphatase 57 Creatine Kinase 40 Creatine Kinase 0.6 Index Creatinine Kinase MB < 0.22 (Mass) Troponin I < 0.012 Total Protein 6.5 Albumin 3.4 Globulin 3.10 Albumin/Globulin 1.09 Ratio Triglycerides Level 182 H Cholesterol Level 201 H LDL Cholesterol, 124 Calculated HDL Cholesterol 41 Cholesterol/HDL 4.9 Ratio Thyroid Stimulating 5.730 H Hormone (TSH) Exam/Review of Systems Exam Vitals Vital Signs Date Temp Pulse Resp B/P (MAP) Pulse Ox O2 O2 Flow FiO2 Time Delivery Rate 10/14/18 105 08:57 10/14/18 97.8 20 118/77 98 Room Air 07:20 (91) Intake and Output 10/13/18 10/13/18 10/14/18 1515:00 23:00 07:00 IntakeIntake Total 500 ml BalanceBalance 500 ml Results Results 24hrs Laboratory Tests Test 10/13/18 20:35 10/13/18 23:01 10/14/18 01:40 10/14/18 01:51 White Blood Count 3.8 #L Red Blood Count 4.40 Hemoglobin 12.1 Hematocrit 38.1 Mean Corpuscular 86.6 Volume Mean Corpuscular 27.5 L Hemoglobin Mean Corpuscular 31.8 L Hemoglobin Concent Red Cell 13.6 Distribution Width Platelet Count 217 Mean Platelet Volume 10.8 H Immature 0.300 Granulocytes % Neutrophils % 56.8 Lymphocytes % 31.3 Monocytes % 9.5 Eosinophils % 1.6 Basophils % 0.5 Nucleated Red Blood 0.0 Cells % Immature 0.010 Granulocytes # Neutrophils # 2.2 Lymphocytes # 1.2 Monocytes # 0.4 Eosinophils # 0.1 Basophils # 0.0 Nucleated Red Blood 0.0 Cells # Prothrombin Time 12.2 Prothrombin Time 1.0 Ratio INR International 0.89 Normalized Ratio Activated 28.9 Partial Thromboplast Time Sodium Level 139 Potassium Level 3.9 Chloride Level 102 Carbon Dioxide Level 30 Anion Gap 7 Blood Urea Nitrogen 7 Creatinine 0.50 Est Glomerular > 60 Filtrat Rate mL/min Glucose Level 224 H Calcium Level 9.6 Troponin I < 0.012 < 0.012 Bedside Glucose 142 204 Creatine Kinase 48 Creatine Kinase 0.6 Index Creatinine Kinase MB 0.28 (Mass) Test 10/14/18 02:46 10/14/18 06:22 10/14/18 08:27 Bedside Glucose 184 212 White Blood Count 4.3 L Red Blood Count 4.20 Hemoglobin 11.6 L Hematocrit 35.7 L Mean Corpuscular 85.0 Volume Mean Corpuscular 27.6 L Hemoglobin Mean Corpuscular 32.5 Hemoglobin Concent Red Cell 13.7 Distribution Width Platelet Count 198 Mean Platelet Volume 10.0 Immature 0.200 Granulocytes % Neutrophils % 61.5 Lymphocytes % 25.5 Monocytes % 11.2 H Eosinophils % 1.4 Basophils % 0.2 Nucleated Red Blood 0.0 Cells % Immature 0.010 Granulocytes # Neutrophils # 2.6 Lymphocytes # 1.1 Monocytes # 0.5 Eosinophils # 0.1 Basophils # 0.0 Nucleated Red Blood 0.0 Cells # Sodium Level 142 Potassium Level 3.7 Chloride Level 107 Carbon Dioxide Level 28 Anion Gap 7 Blood Urea Nitrogen 9 Creatinine 0.54 Est Glomerular > 60 Filtrat Rate mL/min Glucose Level 174 Hemoglobin A1c 7.1 H Calcium Level 9.2 Magnesium Level 2.0 Total Bilirubin 0.1 L Direct Bilirubin 0.00 Indirect Bilirubin 0.1 Aspartate Amino 18 Transf (AST/SGOT) Alanine 18 Aminotransferase (AL T/SGPT) Alkaline Phosphatase 57 Creatine Kinase 40 Creatine Kinase 0.6 Index Creatinine Kinase MB < 0.22 (Mass) Troponin I < 0.012 Total Protein 6.5 Albumin 3.4 Globulin 3.10 Albumin/Globulin 1.09 Ratio Triglycerides Level 182 H Cholesterol Level 201 H LDL Cholesterol, 124 Calculated HDL Cholesterol 41 Cholesterol/HDL 4.9 Ratio Thyroid Stimulating 5.730 H Hormone (TSH) Medications Medication Current Medications IV Flush (NS 3 ml) 3 ml PER PROTOCOL IV ; Start 10/14/18 at 00:30 Ondansetron HCl (Zofran Inj) 4 mg Q6H PRN IV NAUSEA/VOMITING; Start 10/14/18 at 00:30 Aspirin (Aspirin) 81 mg DAILY PO Last administered on 10/14/18at 08:30; Admin Dose 81 MG; Start 10/14/18 at 09:00 Acetaminophen (Tylenol Tab) 650 mg Q6H PRN PO .PAIN 1-3 OR TEMP; Start 10/14/18 at 00:30 Heparin Sodium (Porcine) (Heparin (5000 Units/1ml)) 5,000 unit Q12 SC Last administered on 10/14/18at 09:01; Admin Dose 5,000 UNIT; Start 10/14/18 at 09:00 Diagnostic Test (Pha) (Accu-Chek) 1 ea 02 XX ; Start 10/14/18 at 02:00 Insulin Detemir (Levemir) 10 units DAILY@0800 SC Last administered on 10/14/18at 09:01; Admin Dose 10 UNITS; Start 10/14/18 at 08:00 Anastrozole (Arimidex) 1 mg DAILY PO Last administered on 10/14/18at 10:46; Admin Dose 1 MG; Start 10/14/18 at 09:00 Atorvastatin Calcium (Lipitor) 10 mg QHS PO ; Start 10/14/18 at 21:00 Furosemide (Lasix) 20 mg DAILY PO Last administered on 10/14/18at 08:30; Admin Dose 20 MG; Start 10/14/18 at 09:00 Gabapentin (Neurontin) 300 mg QHS PO ; Start 10/14/18 at 21:00 Lisinopril (Zestril) 5 mg DAILY PO Last administered on 10/14/18at 08:30; Admin Dose 5 MG; Start 10/14/18 at 09:00 Propranolol HCl (Inderal) 5 mg BID PO Last administered on 10/14/18at 08:29; Admin Dose 5 MG; Start 10/14/18 at 09:00 Tramadol HCl (Ultram) 50 mg BID PRN PO PAIN Last administered on 10/14/18at 01:06; Admin Dose 50 MG; Start 10/14/18 at 00:30 Miscellaneous Information 1 ea NOTE XX ; Start 10/14/18 at 01:00 Glucose (Glutose) 15 gm Q15M PRN PO DECREASED GLUCOSE; Start 10/14/18 at 01:00 Glucose (Glutose) 22.5 gm Q15M PRN PO DECREASED GLUCOSE; Start 10/14/18 at 01:00 Dextrose (D50w Syringe) 25 ml Q15M PRN IV DECREASED GLUCOSE; Start 10/14/18 at 01:00 Dextrose (D50w Syringe) 50 ml Q15M PRN IV DECREASED GLUCOSE; Start 10/14/18 at 01:00 Glucagon (Glucagen) 1 mg Q15M PRN IM DECREASED GLUCOSE; Start 10/14/18 at 01:00 Glucose (Glutose) 15 gm Q15M PRN BUCCAL DECREASED GLUCOSE; Start 10/14/18 at 01:00 Insulin Aspart (Novolog Insulin Pen) NOVOLOG *MILD* ALGORITHM WITH MEALS BEDTI ME SC Last administered on 10/14/18at 09:01; Admin Dose 2 UNIT; Start 10/14/18 at 02:30 Acetaminophen/ Hydrocodone Bitart ([place] (5/325)) 1 tab Q6H PRN PO MODERATE PAIN LEVEL 4-6 Last administered on 10/14/18at 05:26; Admin Dose 1 TAB; Start 10/14/18 at 04:00 KIKO FARRELL Oct 14, 2018 11:14
--- NOTE | 2018-10-14 14:36 | RADRPT ---
Echocardiogram Report Patient Name: PING BONILLAPatient ID: [id number] : 1960 (58y 4m)Study Date: 10/14/2018 10:06:12 AM Gender: FAccession #: [id number] Tech: Nicholas Coles [facility] Location: [facility] Ref.Physician: MICHELA CASTILLO Height(Cm): BSA: Weight(Kg): Quality: AdequateAccount #: Procedures: Echocardiographic Report: Transthoracic echocardiogram with complete 2D, M-Mode, and doppler examination. Indications: Transient Ischemic Attack. Measurements: 2D/M Mode Doppler Measurement Value Normal Range Measurement Value Normal Range LVIDd 2D 3.6 [ 3.8 - 5.2 ] cm AV Peak Tevin 1.3 [ 100.0 - 170.0 ] cm/sec LVIDs 2D 2.5 [ 2.2 - 3.5 ] cm AV Peak PG 7.0 [ 2.0 - 9.0 ] mmHg LVPWd 2D 1.2 [ 0.6 - 0.9 ] cm AI Peak PG 50.0 mmHg IVSd 2D 1.2 [ 0.6 - 0.9 ] cm AI Peak Tevin 3.5 cm/sec AoR Diam 2D 2.4 [ 2.3 - 3.1 ] cm AI PHT 491.0 msec EDV 2D 55.2 [ 46.0 - 106.0 ] ml LVOT Peak Tevin 0.9 [ 70.0 - 110.0 ] cm/sec ESV 2D 22.8 [ 14.0 - 42.0 ] ml LVOT Peak PG 3.0 [ 2.0 - 6.0 ] mmHg EF 2D 58.7 [ 54.0 - 74.0 ] percent MV E Peak Tevin 0.7 [ 60.0 - 130.0 ] cm/sec LA Dimen 2D 3.1 [ 2.7 - 3.8 ] cm MV A Peak Tevin 0.6 [ 100.0 - 120.0 ] cm/sec MV E/A 1.2 [ 0.8 - 1.5 ] ratio MV Decel Time 148 [ 104 - 258 ] msec Lat E` Tevin 0.1 [ 10.0 - 15.0 ] cm/sec Lateral E/E` 10.2 [ 1.0 - 2.0 ] ratio Med E` Tevin 0.1 cm/sec MV E/A 1.2 [ 0.8 - 1.5 ] ratio TR Peak Tevin 2.5 [ 100.0 - 280.0 ] cm/sec TR Peak PG 24.0 mmHg RVSP 27.0 [ 10.0 - 36.0 ] mmHg Findings: Left Ventricle: Normal left ventricular systolic function. Normal left ventricular cavity size. Mild concentric left ventricular hypertrophy. Ejection fraction is visually estimated at 65 %. Tissue Doppler/Mitral Doppler indices are within normal limits. Right Ventricle: Normal right ventricular size. Normal right ventricular systolic function. Left Atrium: The left atrium is normal in size. Right Atrium: The right atrium is normal in size. Mitral Valve: Normal appearance of the mitral valve. Aortic Valve: Normal trileaflet aortic valve structure. Mild aortic valve regurgitation. Tricuspid Valve: Normal appearance of the tricuspid valve. Estimated peak PA systolic pressure 27 mmHg. There is trace tricuspid regurgitation. Pulmonic Valve: Pulmonic valve not well visualized. Pericardium: Normal pericardium with no significant pericardial effusion. Aorta: Normal aortic root. IVC: Normal size and normal respiratory collapse consistent with normal right atrial pressure. Conclusions: Normal left ventricular systolic function. Mild concentric left ventricular hypertrophy. Mild aortic regurgitation. Trace tricuspid regurgitation and normal pulmonary pressures. Electronically Signed By: Susan Storey 2018-10-14 14:35:41 PST
[2018-10-14] MEDS: GABAPENTIN 300 MG CAP PO SCH (20:26)
[2018-10-14] MEDS: INSULIN GLARGINE [LANTus] (100 UNITS/ML) SYG SC SCH (20:33)
[2018-10-14] MEDS ORDERED: INSULIN GLARGINE [LANtus] 3 ML PEN SC SCH (21:00)
[2018-10-14] MEDS ORDERED: ATORVASTATIN 10 MG TAB PO SCH (21:00)
[2018-10-15] VITALS (11 sets, daily range): BP systolic 102–118; BP diastolic 58–73; PULSE 57–113; RESP 18–19
[2018-10-15] MEDS: ACCU-CHEK XX SCH (02:00)
[2018-10-15] MEDS: HYDROCODONE/APAP (5/325) TAB PO PRN ×4 (02:47→21:02)
[2018-10-15] MEDS: INSULIN ASPART [NOVOLOG] 3 ML PEN SC SCH ×4 (08:00→20:35)
[2018-10-15] MEDS: ASPIRIN 81 MG TAB PO SCH (08:59)
[2018-10-15] MEDS: FUROSEMIDE 20 MG TAB PO SCH (09:00)
[2018-10-15] MEDS: HEPARIN 5,000 UNIT/1 ML VIAL SC SCH ×2 (09:07→20:34)
[2018-10-15] MEDS: ANASTROZOLE 1 MG TAB PO SCH (09:10)
[2018-10-15] MEDS: traMADol 50 MG TAB PO PRN (09:53)
--- NOTE | 2018-10-15 10:54 | PN ---
Date/Time of Note Date/Time of Note DATE: 10/15/18 TIME: 10:49 Assessment/Plan VTE Prophylaxis Risk score (from Ns)>0 risk: 3 SCD applied (from Ns): No SCD contraindicated: other Pharmacological prophylaxis: heparin Lines/Catheters IV Catheter Type (from [facility]): Saline Lock Urinary Cath still in place: No Assessment/Plan Hospital Course S: Patient worked with physical therapy yesterday. MRI results noted. O: VS - see below PE: Gen: lying in bed, No acute distress, well-appearing, Head: Atraumatic Eyes: Normal Conjunctiva, PERRLA, EOMI ENT: Normal External Ears, Nose and Mouth. Neck: Full range of motion. No meningismus. No JVD Resp: Clear to auscultation bilaterally Cardio: Regular rate and rhythm, no murmurs. Abd: Soft, non tender, non distended. Normal bowel sounds Ext: No cyanosis, or edema Neur: No apparent focal deficits MRI brain: IMPRESSION: 1. Indeterminate few scattered right parietal cortical/subcortical T2 hyperin tensities with DWI hyperintensity without definite restricted diffusion. Small punctate acute infarctions would be unlikely without restricted diffusion. Balloon type focal cortical dysplasia versus other cortical dysplasia is a consideration versus other white matter etiologies. Postcontrast imaging as well as follow-up imaging may be performed as clinically warranted. Comparison with prior imaging may be helpful to document stability. 2. Minimal generalized cerebral volume loss. 3. Otherwise no acute infarction intracranial hemorrhage. Assessment/Plan: 58-year-old female who presents with left-sided weakness symptoms, with a prior history of breast cancer and diabetes. 1. Left-sided weakness symptoms: Rule out TIA, rule out stroke-Head CT negative for acute findings, however MRI brain results noted. -For now continue aspirin, statin, and frequent neuro checks -Given the MRI brain results, we will go ahead and get neurology consult for further workup. -Continue PT eval, ST, OT 2. History of breast cancer, status post mastectomy and chemo/radiation. -Monitor for now, continue anastrozole 3. Hypertension: Stable - Allow for permissive hypertension for now 4. Dyslipidemia: Lipid panel noted - continue statin 5. Diabetes: A1c is 7.1 , sugar stable, seen by visual educator -Continue sliding scale insulin, home Levemir Result Diagram: 2/27/19 0511 2/27/19 0511 Results 24hrs Laboratory Tests Test 10/14/18 11:42 10/14/18 18:08 10/14/18 20:24 10/15/18 02:43 Bedside Glucose 147 209 231 H 160 Test 10/15/18 05:11 10/15/18 08:11 White Blood Count 4.4 L Red Blood Count 4.58 Hemoglobin 12.6 Hematocrit 38.8 Mean Corpuscular 84.7 Volume Mean Corpuscular 27.5 L Hemoglobin Mean Corpuscular 32.5 Hemoglobin Concent Red Cell 14.0 Distribution Width Platelet Count 235 Mean Platelet Volume 10.2 Immature 0.500 H Granulocytes % Neutrophils % 61.0 Lymphocytes % 27.4 Monocytes % 9.0 Eosinophils % 1.6 Basophils % 0.5 Nucleated Red Blood 0.0 Cells % Immature 0.020 Granulocytes # Neutrophils # 2.7 Lymphocytes # 1.2 Monocytes # 0.4 Eosinophils # 0.1 Basophils # 0.0 Nucleated Red Blood 0.0 Cells # Sodium Level 142 Potassium Level 3.9 Chloride Level 102 Carbon Dioxide Level 29 Anion Gap 11 Blood Urea Nitrogen 10 Creatinine 0.60 Est Glomerular > 60 Filtrat Rate mL/min Glucose Level 149 Calcium Level 9.8 Phosphorus Level 4.7 Magnesium Level 2.1 Bedside Glucose 134 Exam/Review of Systems Exam Vitals Vital Signs Date Temp Pulse Resp B/P (MAP) Pulse Ox O2 O2 Flow FiO2 Time Delivery Rate 10/15/18 107 09:05 10/15/18 98.4 19 114/73 94 07:50 (87) 10/15/18 Room Air 04:00 Intake and Output 10/14/18 10/14/18 10/15/18 1515:00 23:00 07:00 IntakeIntake Total 800 ml 400 ml BalanceBalance 800 ml 400 ml Results Results 24hrs Laboratory Tests Test 10/14/18 11:42 10/14/18 18:08 10/14/18 20:24 10/15/18 02:43 Bedside Glucose 147 209 231 H 160 Test 10/15/18 05:11 10/15/18 08:11 White Blood Count 4.4 L Red Blood Count 4.58 Hemoglobin 12.6 Hematocrit 38.8 Mean Corpuscular 84.7 Volume Mean Corpuscular 27.5 L Hemoglobin Mean Corpuscular 32.5 Hemoglobin Concent Red Cell 14.0 Distribution Width Platelet Count 235 Mean Platelet Volume 10.2 Immature 0.500 H Granulocytes % Neutrophils % 61.0 Lymphocytes % 27.4 Monocytes % 9.0 Eosinophils % 1.6 Basophils % 0.5 Nucleated Red Blood 0.0 Cells % Immature 0.020 Granulocytes # Neutrophils # 2.7 Lymphocytes # 1.2 Monocytes # 0.4 Eosinophils # 0.1 Basophils # 0.0 Nucleated Red Blood 0.0 Cells # Sodium Level 142 Potassium Level 3.9 Chloride Level 102 Carbon Dioxide Level 29 Anion Gap 11 Blood Urea Nitrogen 10 Creatinine 0.60 Est Glomerular > 60 Filtrat Rate mL/min Glucose Level 149 Calcium Level 9.8 Phosphorus Level 4.7 Magnesium Level 2.1 Bedside Glucose 134 Medications Medication Current Medications IV Flush (NS 3 ml) 3 ml PER PROTOCOL IV ; Start 10/14/18 at 00:30 Ondansetron HCl (Zofran Inj) 4 mg Q6H PRN IV NAUSEA/VOMITING; Start 10/14/18 at 00:30 Aspirin (Aspirin) 81 mg DAILY PO Last administered on 10/15/18at 08:59; Admin Dose 81 MG; Start 10/14/18 at 09:00 Acetaminophen (Tylenol Tab) 650 mg Q6H PRN PO .PAIN 1-3 OR TEMP; Start 10/14/18 at 00:30 Heparin Sodium (Porcine) (Heparin (5000 Units/1ml)) 5,000 unit Q12 SC Last administered on 10/15/18 09:07; Admin Dose 5,000 UNIT; Start 10/14/18 at 09:00 Diagnostic Test (Pha) (Accu-Chek) 1 ea 02 XX ; Start 10/14/18 at 02:00 Anastrozole (Arimidex) 1 mg DAILY PO Last administered on 10/15/18 09:10; Admin Dose 1 MG; Start 10/14/18 at 09:00 Atorvastatin Calcium (Lipitor) 10 mg QHS PO Last administered on 10/14/18 20:26; Admin Dose 10 MG; Start 10/14/18 at 21:00 Furosemide (Lasix) 20 mg DAILY PO Last administered on 10/15/18 09:00; Admin Dose 20 MG; Start 10/14/18 at 09:00 Gabapentin (Neurontin) 300 mg QHS PO Last administered on 10/14/18at 20:26; Admin Dose 300 MG; Start 10/14/18 at 21:00 Lisinopril (Zestril) 5 mg DAILY PO Last administered on 10/14/18 08:30; Admin Dose 5 MG; Start 10/14/18 at 09:00; Status Hold Propranolol HCl (Inderal) 5 mg BID PO Last administered on 10/14/18 08:29; Admin Dose 5 MG; Start 10/14/18 at 09:00; Status Hold Tramadol HCl (Ultram) 50 mg BID PRN PO PAIN Last administered on 10/15/18 09:53; Admin Dose 50 MG; Start 10/14/18 at 00:30 Miscellaneous Information 1 ea NOTE XX ; Start 10/14/18 at 01:00 Glucose (Glutose) 15 gm Q15M PRN PO DECREASED GLUCOSE; Start 10/14/18 at 01:00 Glucose (Glutose) 22.5 gm Q15M PRN PO DECREASED GLUCOSE; Start 10/14/18 at 01:00 Dextrose (D50w Syringe) 25 ml Q15M PRN IV DECREASED GLUCOSE; Start 10/14/18 at 01:00 Dextrose (D50w Syringe) 50 ml Q15M PRN IV DECREASED GLUCOSE; Start 10/14/18 at 01:00 Glucagon (Glucagen) 1 mg Q15M PRN IM DECREASED GLUCOSE; Start 10/14/18 at 01:00 Glucose (Glutose) 15 gm Q15M PRN BUCCAL DECREASED GLUCOSE; Start 10/14/18 at 01:00 Insulin Aspart (Novolog Insulin Pen) NOVOLOG *MILD* ALGORITHM WITH MEALS BEDTIME SC Last administered on 10/14/18 20:32; Admin Dose 2 UNIT; Start 10/14/18 at 02:30 Acetaminophen/ Hydrocodone Bitart ([place] (5/325)) 1 tab Q6H PRN PO MODERATE PAIN LEVEL 4-6 Last administered on 10/15/18 08:58; Admin Dose 1 TAB; Start 10/14/18 at 04:00 Insulin Glargine (Lantus) 20 units QPM SC Last administered on 10/14/18at 20:33; Admin Dose 20 UNITS; Start 10/14/18 at 21:00 KIKO FARRELL Oct 15, 2018 10:53
--- NOTE | 2018-10-15 15:06 | CONS ---
Assessment/Plan Assessment/Plan Hospital Course 58 F c/ multiple cerebrovascular risk factors, who presents for evaluation of days of R arm and leg weakness... MRI brain is without obvious acute intracranial pathology....though it is notable for a patchy, superficial R parietal hyperintensity of uncertain significance...for which neurology is consulted.. P: MRI brain w/ contrast and MRA head without contrast for further characterization PT/OT as necessary Will follow Consultation Date/Type/Reason Admit Date/Time Oct 13, 2018 at 23:45 Type of Consult Neurology Reason for Consultation left sided weakness; abnl MRI brain Requesting Provider: KIKO FARRELL Date/Time of Note DATE: 10/15/18 TIME: 15:01 Hx of Present Illness This is a 58-year-old female with a history of hypertension, dyslipidemia, type 2 diabetes, insulin-dependent and history of breast cancer status post mastectomy and chemo/radiation. Patient presents the ER complaining of left upper and lower extremity numbness, which she to me reports began on Saturday, 10/12. She denied slurred speech, focal weakness, facial droop, visual disturbance or headache. When she presented to ER, vitals were stable. Head CT was negative for acute findings. 12 PT ROS ow neg Exam/Review of Systems Exam Vitals Vital Signs Date Temp Pulse Resp B/P (MAP) Pulse Ox O2 O2 Flow FiO2 Time Delivery Rate 10/15/18 92 12:40 10/15/18 98.0 19 109/66 97 11:30 (80) 10/15/18 Room Air 04:00 Intake and Output 10/14/18 10/14/18 10/15/18 1515:00 23:00 07:00 IntakeIntake Total 800 ml 400 ml BalanceBalance 800 ml 400 ml Exam PE: Gen Appearance: No Apparent Distress HEENT: Normocephalic Cardiovascular: Regular rate Lungs: Clear bilaterally Abdomen: Soft Extremities: Dry NE: The patient was alert and oriented. Language was normal. Fund of knowledge was normal. Pupils were equal and reactive to light. There was no afferent pupillary defect. Visual ruano were normal. Funduscopic examination was limited. Extra-ocular movements were full. Ptosis was absent. There was no nystagmus. Facial sensation was normal. Face was symmetric with normal strength. Hearing was intact. Palate movements were normal. Neck strength was normal. There was normal tongue bulk and speed of movement. Tone was normal. Muscle bulk was normal. I did not see fasciculations. Arms were strong. Legs were mildly weak, perhaps pain limited b/l.. Vibration sensation was absent in her toes. Temperature and pinprick sensation was normal. Rapid alternating movements were normal. There was no dysmetria. There was no intention tremor. Gait was deferred due to bedrest. Arm and leg reflexes were symmetric. Torres's sign was absent. Plantar responses were flexor. Results Result Diagram: 10/15/1851010/15/1811 Results 24hrs Laboratory Tests Test 10/14/18 18:08 10/14/18 20:24 10/15/18 02:43 10/15/18 05:11 Bedside Glucose 209 231 H 160 White Blood Count 4.4 L Red Blood Count 4.58 Hemoglobin 12.6 Hematocrit 38.8 Mean Corpuscular 84.7 Volume Mean Corpuscular 27.5 L Hemoglobin Mean Corpuscular 32.5 Hemoglobin Concent Red Cell 14.0 Distribution Width Platelet Count 235 Mean Platelet Volume 10.2 Immature 0.500 H Granulocytes % Neutrophils % 61.0 Lymphocytes % 27.4 Monocytes % 9.0 Eosinophils % 1.6 Basophils % 0.5 Nucleated Red Blood 0.0 Cells % Immature 0.020 Granulocytes # Neutrophils # 2.7 Lymphocytes # 1.2 Monocytes # 0.4 Eosinophils # 0.1 Basophils # 0.0 Nucleated Red Blood 0.0 Cells # Sodium Level 142 Potassium Level 3.9 Chloride Level 102 Carbon Dioxide Level 29 Anion Gap 11 Blood Urea Nitrogen 10 Creatinine 0.60 Est Glomerular > 60 Filtrat Rate mL/min Glucose Level 149 Calcium Level 9.8 Phosphorus Level 4.7 Magnesium Level 2.1 Test 10/15/18 08:11 10/15/18 11:57 Bedside Glucose 134 167 Medications Medication Current Medications IV Flush (NS 3 ml) 3 ml PER PROTOCOL IV ; Start 10/14/18 at 00:30 Ondansetron HCl (Zofran Inj) 4 mg Q6H PRN IV NAUSEA/VOMITING; Start 10/14/18 at 00:30 Aspirin (Aspirin) 81 mg DAILY PO Last administered on 10/15/18at 08:59; Admin Dose 81 MG; Start 10/14/18 at 09:00 Acetaminophen (Tylenol Tab) 650 mg Q6H PRN PO .PAIN 1-3 OR TEMP; Start 10/14/18 at 00:30 Heparin Sodium (Porcine) (Heparin (5000 Units/1ml)) 5,000 unit Q12 SC Last administered on 10/15/18at 09:07; Admin Dose 5,000 UNIT; Start 10/14/18 at 09:00 Diagnostic Test (Pha) (Accu-Chek) 1 ea 02 XX ; Start 10/14/18 at 02:00 Anastrozole (Arimidex) 1 mg DAILY PO Last administered on 10/15/18at 09:10; Admin Dose 1 MG; Start 10/14/18 at 09:00 Furosemide (Lasix) 20 mg DAILY PO Last administered on 10/15/18at 09:00; Admin Dose 20 MG; Start 10/14/18 at 09:00 Gabapentin (Neurontin) 300 mg QHS PO Last administered on 10/14/18at 20:26; Admin Dose 300 MG; Start 10/14/18 at 21:00 Lisinopril (Zestril) 5 mg DAILY PO Last administered on 10/14/18at 08:30; Admin Dose 5 MG; Start 10/14/18 at 09:00; Status Hold Propranolol HCl (Inderal) 5 mg BID PO Last administered on 10/14/18at 08:29; Admin Dose 5 MG; Start 10/14/18 at 09:00; Status Hold Tramadol HCl (Ultram) 50 mg BID PRN PO PAIN Last administered on 10/15/18at 09:53; Admin Dose 50 MG; Start 10/14/18 at 00:30 Miscellaneous Information 1 ea NOTE XX ; Start 10/14/18 at 01:00 Glucose (Glutose) 15 gm Q15M PRN PO DECREASED GLUCOSE; Start 10/14/18 at 01:00 Glucose (Glutose) 22.5 gm Q15M PRN PO DECREASED GLUCOSE; Start 10/14/18 at 01:00 Dextrose (D50w Syringe) 25 ml Q15M PRN IV DECREASED GLUCOSE; Start 10/14/18 at 01:00 Dextrose (D50w Syringe) 50 ml Q15M PRN IV DECREASED GLUCOSE; Start 10/14/18 at 01:00 Glucagon (Glucagen) 1 mg Q15M PRN IM DECREASED GLUCOSE; Start 10/14/18 at 01:00 Glucose (Glutose) 15 gm Q15M PRN BUCCAL DECREASED GLUCOSE; Start 10/14/18 at 01:00 Insulin Aspart (Novolog Insulin Pen) NOVOLOG *MILD* ALGORITHM WITH MEALS BEDTIME SC Last administered on 10/15/18at 12:31; Admin Dose 1 UNIT; Start 10/14/18 at 02:30 Acetaminophen/ Hydrocodone Bitart ([place] (5/325)) 1 tab Q6H PRN PO MODERATE PAIN LEVEL 4-6 Last administered on 10/15/18at 08:58; Admin Dose 1 TAB; Start 10/14/18 at 04:00 Insulin Glargine (Lantus) 20 units QPM SC Last administered on 10/14/18at 20:33; Admin Dose 20 UNITS; Start 10/14/18 at 21:00 Atorvastatin Calcium (Lipitor) 40 mg QHS PO ; Start 10/15/18 at 21:00 Past Medical History reviewed Home Meds Active Scripts Furosemide* (Lasix*) 20 Mg Tablet, 20 MG PO DAILY for 5 Days, TAB Prov:HALIE PURVIS MD 09/04/18 Ibuprofen* (Motrin*) 600 Mg Tab, 600 MG PO Q8 PRN for PAIN AND/OR INFLAMMATION, #30 TAB Prov:CEDRICK THAO MD 08/31/18 Reported Medications Gabapentin* (Gabapentin*) 300 Mg Capsule, 300 MG PO QHS, #60 CAP 08/08/18 Anastrozole* (Arimidex*) 1 Mg Tablet, 1 MG PO DAILY, #30 TAB 08/08/18 Propranolol Hcl* (Propranolol Hcl*) 10 Mg Tablet, 5 MG PO BID, TAB 08/08/18 Lisinopril* (Lisinopril*) 5 Mg Tablet, 5 MG PO DAILY, #30 TAB 08/08/18 Atorvastatin Calcium (Atorvastatin Calcium) 10 Mg Tablet, 10 MG PO QHS, #30 TAB 08/08/18 Insulin Glargine,Hum.rec.anlog (Basaglar Kwikpen U-100) 100 Unit/1 Ml Insuln.pen, 20 UNIT SC QPM, EA 08/08/18 Metformin* (Glucophage*) 1,000 Mg Tablet, 1000 MG PO BID, #60 TAB 08/08/18 Tramadol Hcl* (Ultram*) 50 Mg Tablet, 50 MG PO BID PRN for PAIN, TAB 10/25/17 Medications Current Medications IV Flush (NS 3 ml) 3 ml PER PROTOCOL IV ; Start 10/14/18 at 00:30 Ondansetron HCl (Zofran Inj) 4 mg Q6H PRN IV NAUSEA/VOMITING; Start 10/14/18 at 00:30 Aspirin (Aspirin) 81 mg DAILY PO Last administered on 10/15/18 08:59; Admin Dose 81 MG; Start 10/14/18 at 09:00 Acetaminophen (Tylenol Tab) 650 mg Q6H PRN PO .PAIN 1-3 OR TEMP; Start 10/14/18 at 00:30 Heparin Sodium (Porcine) (Heparin (5000 Units/1ml)) 5,000 unit Q12 SC Last administered on 10/15/18 09:07; Admin Dose 5,000 UNIT; Start 10/14/18 at 09:00 Diagnostic Test (Pha) (Accu-Chek) 1 ea 02 XX ; Start 10/14/18 at 02:00 Anastrozole (Arimidex) 1 mg DAILY PO Last administered on 10/15/18 09:10; Admin Dose 1 MG; Start 10/14/18 at 09:00 Furosemide (Lasix) 20 mg DAILY PO Last administered on 10/15/18 09:00; Admin Dose 20 MG; Start 10/14/18 at 09:00 Gabapentin (Neurontin) 300 mg QHS PO Last administered on 10/14/18 20:26; Admin Dose 300 MG; Start 10/14/18 at 21:00 Lisinopril (Zestril) 5 mg DAILY PO Last administered on 10/14/18 08:30; Admin Dose 5 MG; Start 10/14/18 at 09:00; Status Hold Propranolol HCl (Inderal) 5 mg BID PO Last administered on 10/14/18 08:29; Admin Dose 5 MG; Start 10/14/18 at 09:00; Status Hold Tramadol HCl (Ultram) 50 mg BID PRN PO PAIN Last administered on 10/15/18 09:53; Admin Dose 50 MG; Start 10/14/18 at 00:30 Miscellaneous Information 1 ea NOTE XX ; Start 10/14/18 at 01:00 Glucose (Glutose) 15 gm Q15M PRN PO DECREASED GLUCOSE; Start 10/14/18 at 01:00 Glucose (Glutose) 22.5 gm Q15M PRN PO DECREASED GLUCOSE; Start 10/14/18 at 01:00 Dextrose (D50w Syringe) 25 ml Q15M PRN IV DECREASED GLUCOSE; Start 10/14/18 at 01:00 Dextrose (D50w Syringe) 50 ml Q15M PRN IV DECREASED GLUCOSE; Start 10/14/18 at 01:00 Glucagon (Glucagen) 1 mg Q15M PRN IM DECREASED GLUCOSE; Start 10/14/18 at 01:00 Glucose (Glutose) 15 gm Q15M PRN BUCCAL DECREASED GLUCOSE; Start 10/14/18 at 01:00 Insulin Aspart (Novolog Insulin Pen) NOVOLOG *MILD* ALGORITHM WITH MEALS BEDTIME SC Last administered on 10/15/18at 12:31; Admin Dose 1 UNIT; Start 10/14/18 at 02:30 Acetaminophen/ Hydrocodone Bitart ([place] (5/325)) 1 tab Q6H PRN PO MODERATE PAIN LEVEL 4-6 Last administered on 10/15/18at 08:58; Admin Dose 1 TAB; Start 10/14/18 at 04:00 Insulin Glargine (Lantus) 20 units QPM SC Last administered on 10/14/18at 20:33; Admin Dose 20 UNITS; Start 10/14/18 at 21:00 Atorvastatin Calcium (Lipitor) 40 mg QHS PO ; Start 10/15/18 at 21:00 Allergies: Coded Allergies: No Known Allergy (Unverified , 09/21/18) Past Surgical History Past Surgical Hx: no surgical history Social History Smoking Status: Former smoker AYSHA CHRISTOPHER Oct 15, 2018 15:06
[2018-10-15] MEDS: GABAPENTIN 300 MG CAP PO SCH (20:22)
[2018-10-15] MEDS: ATORVASTATIN 40 MG TAB PO SCH (20:22)
[2018-10-15] MEDS: INSULIN GLARGINE [LANTus] (100 UNITS/ML) SYG SC SCH (20:34)
[2018-10-16] VITALS (11 sets, daily range): BP systolic 108–114; BP diastolic 65–77; PULSE 98–113; RESP 18–19
[2018-10-16] MEDS: ACCU-CHEK XX SCH (02:13)
[2018-10-16] MEDS: HYDROCODONE/APAP (5/325) TAB PO PRN ×4 (03:12→21:23)
[2018-10-16] MEDS: ASPIRIN 81 MG TAB PO SCH (07:58)
[2018-10-16] MEDS: FUROSEMIDE 20 MG TAB PO SCH (07:58)
[2018-10-16] MEDS: ANASTROZOLE 1 MG TAB PO SCH (07:59)
[2018-10-16] MEDS: INSULIN ASPART [NOVOLOG] 3 ML PEN SC SCH ×6 (08:00→21:41)
[2018-10-16] MEDS: HEPARIN 5,000 UNIT/1 ML VIAL SC SCH ×2 (08:00→21:42)
--- NOTE | 2018-10-16 11:33 | PN ---
Date/Time of Note Date/Time of Note DATE: 10/16/18 TIME: 11:19 Assessment/Plan VTE Prophylaxis Risk score (from Ns)>0 risk: 1 SCD applied (from Ns): No SCD contraindicated: other Pharmacological prophylaxis: heparin Lines/Catheters IV Catheter Type (from Rust): Saline Lock Urinary Cath still in place: No Assessment/Plan Hospital Course S: Patient complaining of some left leg numbness. Seen by neurology team yesterday. By physical therapy team again this morning MRI brain and MRA brain with contrast results noted now. O: VS - see below PE: Gen: lying in bed, No acute distress, well-appearing, Head: Atraumatic Eyes: Normal Conjunctiva, PERRLA, EOMI ENT: Normal External Ears, Nose and Mouth. Neck: Full range of motion. No meningismus. No JVD Resp: Clear to auscultation bilaterally Cardio: Regular rate and rhythm, no murmurs. Abd: Soft, non tender, non distended. Normal bowel sounds Ext: No cyanosis, or edema Neur: No apparent focal deficits MRI brain without contrast: IMPRESSION: 1. Indeterminate few scattered right parietal cortical/subcortical T2 hyperintensities with DWI hyperintensity without definite restricted diffusion. Small punctate acute infarctions would be unlikely without restricted diffusion. Balloon type focal cortical dysplasia versus other cortical dysplasia is a consideration versus other white matter etiologies. Postcontrast imaging as well as follow-up imaging may be performed as clinically warranted. Comparison with prior imaging may be helpful to document stability. 2. Minimal generalized cerebral volume loss. 3. Otherwise no acute infarction intracranial hemorrhage. Assessment/Plan: 58-year-old female who presents with left-sided weakness symptoms, with a prior history of breast cancer and diabetes. 1. Left-sided weakness symptoms: Slowly improving, still having some numbness of the left lower extremity. Head CT negative for acute findings, however seen by neurology team , and new MRI brain with contrast and MRA results noted -For now continue aspirin, statin, and frequent neuro checks -Follow-up recs from neurology consult for further workup. -Continue PT eval, ST, OT -Per latest MRI brain results, recommend repeating brain scan in 4 months. 2. History of breast cancer, status post mastectomy and chemo/radiation. -Monitor for now, continue anastrozole 3. Hypertension: Stable - Allow for permissive hypertension for now 4. Dyslipidemia: Lipid panel noted - continue statin 5. 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 -Continue sliding scale insulin, home Levemir Result Diagram: 10/16/18 0536 10/16/18 0536 Results 24hrs Laboratory Tests Test 10/15/18 11:57 10/15/18 18:24 10/15/18 20:25 10/16/18 01:38 Bedside Glucose 167 192 240 H 277 H Test 10/16/18 05:36 10/16/18 07:38 White Blood Count 3.9 L Red Blood Count 4.54 Hemoglobin 12.5 Hematocrit 38.9 Mean Corpuscular 85.7 Volume Mean Corpuscular 27.5 L Hemoglobin Mean Corpuscular 32.1 Hemoglobin Concent Red Cell 13.7 Distribution Width Platelet Count 222 Mean Platelet Volume 10.4 Immature 0.500 H Granulocytes % Neutrophils % 53.5 Lymphocytes % 32.7 Monocytes % 10.7 Eosinophils % 2.3 Basophils % 0.3 Nucleated Red Blood 0.0 Cells % Immature 0.020 Granulocytes # Neutrophils # 2.1 Lymphocytes # 1.3 Monocytes # 0.4 Eosinophils # 0.1 Basophils # 0.0 Nucleated Red Blood 0.0 Cells # Sodium Level 140 Potassium Level 4.0 Chloride Level 105 Carbon Dioxide Level 27 Anion Gap 8 Blood Urea Nitrogen 12 Creatinine 0.55 Est Glomerular > 60 Filtrat Rate mL/min Glucose Level 249 #H Calcium Level 9.7 Phosphorus Level 4.0 Magnesium Level 2.1 Bedside Glucose 236 H Exam/Review of Systems Exam Vitals Vital Signs Date Temp Pulse Resp B/P (MAP) Pulse Ox O2 O2 Flow FiO2 Time Delivery Rate 10/16/18 113 08:02 10/16/18 98.2 19 114/71 98 07:21 (85) 10/16/18 Room Air 04:16 Intake and Output 10/15/18 10/15/18 10/16/18 1515:00 23:00 07:00 IntakeIntake Total 700 ml 120 ml BalanceBalance 700 ml 120 ml Results Results 24hrs Laboratory Tests Test 10/15/18 11:57 10/15/18 18:24 10/15/18 20:25 10/16/18 01:38 Bedside Glucose 167 192 240 H 277 H Test 10/16/18 05:36 10/16/18 07:38 White Blood Count 3.9 L Red Blood Count 4.54 Hemoglobin 12.5 Hematocrit 38.9 Mean Corpuscular 85.7 Volume Mean Corpuscular 27.5 L Hemoglobin Mean Corpuscular 32.1 Hemoglobin Concent Red Cell 13.7 Distribution Width Platelet Count 222 Mean Platelet Volume 10.4 Immature 0.500 H Granulocytes % Neutrophils % 53.5 Lymphocytes % 32.7 Monocytes % 10.7 Eosinophils % 2.3 Basophils % 0.3 Nucleated Red Blood 0.0 Cells % Immature 0.020 Granulocytes # Neutrophils # 2.1 Lymphocytes # 1.3 Monocytes # 0.4 Eosinophils # 0.1 Basophils # 0.0 Nucleated Red Blood 0.0 Cells # Sodium Level 140 Potassium Level 4.0 Chloride Level 105 Carbon Dioxide Level 27 Anion Gap 8 Blood Urea Nitrogen 12 Creatinine 0.55 Est Glomerular > 60 Filtrat Rate mL/min Glucose Level 249 #H Calcium Level 9.7 Phosphorus Level 4.0 Magnesium Level 2.1 Bedside Glucose 236 H Medications Medication Current Medications IV Flush (NS 3 ml) 3 ml PER PROTOCOL IV ; Start 10/14/18 at 00:30 Ondansetron HCl (Zofran Inj) 4 mg Q6H PRN IV NAUSEA/VOMITING; Start 10/14/18 at 00:30 Aspirin (Aspirin) 81 mg DAILY PO Last administered on 10/16/18 07:58; Admin Dose 81 MG; Start 10/14/18 at 09:00 Acetaminophen (Tylenol Tab) 650 mg Q6H PRN PO .PAIN 1-3 OR TEMP; Start 10/14/18 at 00:30 Heparin Sodium (Porcine) (Heparin (5000 Units/1ml)) 5,000 unit Q12 SC Last administered on 10/16/18 08:00; Admin Dose 5,000 UNIT; Start 10/14/18 at 09:00 Diagnostic Test (Pha) (Accu-Chek) 1 ea 02 XX Last administered on 10/16/18 02:13; Admin Dose 1 EA; Start 10/14/18 at 02:00 Anastrozole (Arimidex) 1 mg DAILY PO Last administered on 10/16/18 07:59; Admin Dose 1 MG; Start 10/14/18 at 09:00 Furosemide (Lasix) 20 mg DAILY PO Last administered on 10/16/18 07:58; Admin Dose 20 MG; Start 10/14/18 at 09:00 Gabapentin (Neurontin) 300 mg QHS PO Last administered on 10/15/18 20:22; Admin Dose 300 MG; Start 10/14/18 at 21:00 Lisinopril (Zestril) 5 mg DAILY PO Last administered on 10/14/18 08:30; Admin Dose 5 MG; Start 10/14/18 at 09:00; Status Hold Propranolol HCl (Inderal) 5 mg BID PO Last administered on 10/14/18 08:29; Admin Dose 5 MG; Start 10/14/18 at 09:00; Status Hold Tramadol HCl (Ultram) 50 mg BID PRN PO PAIN Last administered on 10/15/18 09:53; Admin Dose 50 MG; Start 10/14/18 at 00:30 Miscellaneous Information 1 ea NOTE XX ; Start 10/14/18 at 01:00 Glucose (Glutose) 15 gm Q15M PRN PO DECREASED GLUCOSE; Start 10/14/18 at 01:00 Glucose (Glutose) 22.5 gm Q15M PRN PO DECREASED GLUCOSE; Start 10/14/18 at 01:00 Dextrose (D50w Syringe) 25 ml Q15M PRN IV DECREASED GLUCOSE; Start 10/14/18 at 01:00 Dextrose (D50w Syringe) 50 ml Q15M PRN IV DECREASED GLUCOSE; Start 10/14/18 at 01:00 Glucagon (Glucagen) 1 mg Q15M PRN IM DECREASED GLUCOSE; Start 10/14/18 at 01:00 Glucose (Glutose) 15 gm Q15M PRN BUCCAL DECREASED GLUCOSE; Start 10/14/18 at 01:00 Insulin Aspart (Novolog Insulin Pen) NOVOLOG *MILD* ALGORITHM WITH MEALS BEDTIME SC Last administered on 10/16/18at 08:00; Admin Dose 3 UNIT; Start 10/14/18 at 02:30 Acetaminophen/ Hydrocodone Bitart ([place] (5/325)) 1 tab Q6H PRN PO MODERATE P AIN LEVEL 4-6 Last administered on 10/16/18 08:59; Admin Dose 1 TAB; Start 10/14/18 at 04:00 Insulin Glargine (Lantus) 20 units QPM SC Last administered on 10/15/18 20:34; Admin Dose 20 UNITS; Start 10/14/18 at 21:00 Atorvastatin Calcium (Lipitor) 40 mg QHS PO Last administered on 10/15/18at 20:2 2; Admin Dose 40 MG; Start 10/15/18 at 21:00 KIKO FARRELL Oct 16, 2018 11:33
--- NOTE | 2018-10-16 14:00 | CONS ---
Assessment/Plan Assessment/Plan Hospital Course 58 F c/ multiple cerebrovascular risk factors, who presents for evaluation of days of R arm and leg weakness... MRI brain is without obvious acute intracranial pathology....though it is notable for a patchy, superficial R parietal hyperintensity of uncertain significance...for which neurology is consulted.. Additional MRI sequences post-contrast are unremarkable.. MRA is normal.. P: Ok to defer additional neuroimaging for now Continued medical management and supportive care per primary PT/OT as necessary Rec: Repeat MRI brain w/ and w/o contrast in ~ 3-4 months Will sign off; please call w/ ?s Consultation Date/Type/Reason Admit Date/Time Oct 15, 2018 at 13:49 Type of Consult Neurology Reason for Consultation abnl MRI brain; weakness Requesting Provider: KIKO FARRELL Date/Time of Note DATE: 10/16/18 TIME: 14:00 24 HR Interval Summary Free Text/Dictation Continues telemetry monitoring. S/p MRI/MRA Exam Vital Signs Vitals Vital Signs Date Temp Pulse Resp B/P (MAP) Pulse Ox O2 O2 Flow FiO2 Time Delivery Rate 10/16/18 112 12:02 10/16/18 98.1 19 114/77 98 11:35 (89) 10/16/18 Room Air 04:16 Intake and Output 10/15/18 10/15/18 10/16/18 1414:59 22:59 06:59 IntakeIntake Total 700 ml 120 ml BalanceBalance 700 ml 120 ml Exam PE: Gen Appearance: No Apparent Distress HEENT: Normocephalic Cardiovascular: Regular rate Lungs: Clear bilaterally Abdomen: Soft Extremities: Dry NE: The patient was alert and oriented. Language was normal. Fund of knowledge was normal. Pupils were equal and reactive to light. There was no afferent pupillary defect. Visual ruano were normal. Funduscopic examination was limited. Extra-ocular movements were full. Ptosis was absent. There was no nystagmus. Facial sensation was normal. Face was symmetric with normal strength. Hearing was intact. Palate movements were normal. Neck strength was normal. There was normal tongue bulk and speed of movement. Tone was normal. Muscle bulk was normal. I did not see fasciculations. Arms were strong. Legs were mildly weak, perhaps pain limited b/l, R>L.. Vibration sensation was absent in her toes. Temperature and pinprick sensation was normal. Rapid alternating movements were normal. There was no dysmetria. There was no intention tremor. Gait was deferred due to bedrest. Arm and leg reflexes were symmetric. Torres's sign was absent. Plantar responses were flexor. ETHAN DUNN NP Oct 16, 2018 14:00 AYSHA CHRISTOPHER Oct 16, 2018 16:38
[2018-10-16] MEDS: ATORVASTATIN 40 MG TAB PO SCH (21:19)
[2018-10-16] MEDS: GABAPENTIN 300 MG CAP PO SCH (21:19)
[2018-10-16] MEDS: INSULIN GLARGINE [LANTus] (100 UNITS/ML) SYG SC SCH (21:41)
[2018-10-17] VITALS (9 sets, daily range): BP systolic 100–121; BP diastolic 70–78; PULSE 86–111; RESP 18–20
[2018-10-17] MEDS ORDERED: ACCU-CHEK XX SCH (02:00)
[2018-10-17] MEDS: ACCU-CHEK XX SCH (02:45)
[2018-10-17] MEDS: HYDROCODONE/APAP (5/325) TAB PO PRN ×2 (05:47→11:36)
[2018-10-17] MEDS: INSULIN ASPART [NOVOLOG] 3 ML PEN SC SCH ×4 (07:55→11:43)
[2018-10-17] MEDS: FUROSEMIDE 20 MG TAB PO SCH (08:38)
[2018-10-17] MEDS: ASPIRIN 81 MG TAB PO SCH (08:38)
[2018-10-17] MEDS: ANASTROZOLE 1 MG TAB PO SCH (08:38)
[2018-10-17] MEDS: HEPARIN 5,000 UNIT/1 ML VIAL SC SCH (08:42)
[2018-10-17] MEDS ORDERED: traMADol 50 MG TAB PO PRN (11:30)
--- NOTE | 2018-10-17 11:40 | PDOCDIS ---
Discharge Instructions CONDITION [id number] Patient Condition: [id number] Stable HOME CARE INSTRUCTIONS: [id number] Diet Instructions: [id number] Low Fat /Cholesterol ACTIVITY: [id number] Activity Restrictions: [id number] Slowly Increase Activity Rest between Activity Avoid heavy lifting FOLLOW UP/APPOINTMENTS Follow-up Plan Please take your medications as prescribed, see your doctor in clinic in the next 1-2 weeks. KIKO FARRELL Oct 17, 2018 11:40
[2018-10-17] MEDS ORDERED: ATOR40TA68 PO (11:53)
--- NOTE | 2018-10-17 12:02 | DS ---
Date/Time of Note Date/Time of Note DATE: 10/17/18 TIME: 11:55 Discharge Summary Admission/Discharge Info Admit Date/Time Oct 15, 2018 at 13:49 Discharge Date/Time Discharge Diagnosis 1. Left-sided weakness symptoms: Slowly improving, still having some numbness of the left lower extremity. Head CT negative for acute findings, however seen by neurology team , and new MRI brain with contrast and MRA results noted 2. History of breast cancer, status post mastectomy and chemo/radiation 3. Hypertension: Stable 4. Dyslipidemia: Lipid panel noted 5. Diabetes: A1c is 7.1 , sugar stable Patient Condition: Stable Procedures MRI brain without contrast: IMPRESSION: 1. Indeterminate few scattered right parietal cortical/subcortical T2 hyperintensities with DWI hyperintensity without definite restricted diffusion. Small punctate acute infarctions would be unlikely without restricted diffusion. Balloon type focal cortical dysplasia versus other cortical dysplasia is a consideration versus other white matter etiologies. Postcontrast imaging as well as follow-up imaging may be performed as clinically warranted. Comparison with prior imaging may be helpful to document stability. 2. Minimal generalized cerebral volume loss. 3. Otherwise no acute infarction intracranial hemorrhage. 2D echo: Conclusions: Normal left ventricular systolic function. Mild concentric left ventricular hypertrophy. Mild aortic regurgitation. Trace tricuspid regurgitation and normal pulmonary pressures. Hx of Present Illness 58-year-old female with a history of hypertension, dyslipidemia, type 2 diabetes, insulin-dependent and history of breast cancer status post mastectomy and chemo/radiation. Patient presents the ER complaining of left upper and lower extremity numbness. She said this been going on for about a year since her chemo treatment ended. She denied slurred speech, focal weakness, facial droop, visual disturbance or headache. When she presented to ER, vitals were stable. Head CT was negative for acute findings. Hospital Course Patient was admitted and seen by neurology team during this hospital stay. Patient also working with speech therapy, occupational therapy and physical therapy teams. Per neurology team, her MRI brain is without obvious acute intracranial pathology....though it is notable for a patchy, superficial R parietal hyperintensity of uncertain significance. Because of this an MRI of the brain and neck were performed as well. Over the course of the patient's hospital stay the weakness and numbness symptoms in the left side improved. She did have some continued pain symptoms. But this was not thought to be new. She was able to ambulate with assistance, tolerated p.o. diet. Once case management has set up home health eval and given front wheel walker to the patient, she will be discharged home later today in improved condition. It was stressed the importance to the patient of getting a repeat brain MRI in the next 3-4 months, which she acknowledged to do. See below for full list of discharge medications. Home Meds Active Scripts Atorvastatin* (Atorvastatin*) 40 Mg Tablet, 40 MG PO QHS, #30 TAB 4 Refills Prov:KIKO FARRELL 10/17/18 Furosemide* (Lasix*) 20 Mg Tablet, 20 MG PO DAILY for 5 Days, TAB Prov:HALIE PURVIS MD 09/04/18 Ibuprofen* (Motrin*) 600 Mg Tab, 600 MG PO Q8 PRN for PAIN AND/OR INFLAMMATION, #30 TAB Prov:CEDRICK THAO MD 08/31/18 Reported Medications Anastrozole* (Arimidex*) 1 Mg Tablet, 1 MG PO DAILY, #30 TAB 08/08/18 Propranolol Hcl* (Propranolol Hcl*) 10 Mg Tablet, 5 MG PO BID, TAB 08/08/18 Lisinopril* (Lisinopril*) 5 Mg Tablet, 5 MG PO DAILY, #30 TAB 08/08/18 Insulin Glargine,Hum.rec.anlog (Basaglar Kwikpen U-100) 100 Unit/1 Ml Insuln.pen, 20 UNIT SC QPM, EA 08/08/18 Metformin* (Glucophage*) 1,000 Mg Tablet, 1000 MG PO BID, #60 TAB 08/08/18 Discontinued Reported Medications Gabapentin* (Gabapentin*) 300 Mg Capsule, 300 MG PO QHS, #60 CAP 08/08/18 Atorvastatin Calcium (Atorvastatin Calcium) 10 Mg Tablet, 10 MG PO QHS, #30 TAB 08/08/18 Tramadol Hcl* (Ultram*) 50 Mg Tablet, 50 MG PO BID PRN for PAIN, TAB 10/25/17 Follow-up Plan Please take your medications as prescribed, see your doctor in clinic in the next 1-2 weeks. Primary Care Provider Jareth Ribeiro Time spent on discharge: > 30 minutes Pending Labs Laboratory Tests Test 10/16/18 17:13 10/16/18 21:31 10/17/18 02:43 10/17/18 07:44 Bedside 215 298 237 193 Glucose mg/dL (70-220) mg/dL (70-220) mg/dL (70-220) mg/dL (70-220) Test 10/17/18 11:35 Bedside 255 Glucose mg/dL (70-220) KIKO FARRELL Oct 17, 2018 12:02
[2018-10-17] MEDS ORDERED: GABAPENTIN 100 MG CAP PO SCH (13:00)
--- NOTE | 2018-10-17 14:10 | CONS ---
Assessment/Plan Assessment/Plan Hospital Course 58 F c/ multiple cerebrovascular risk factors, who presents for evaluation of days of R arm and leg weakness... MRI brain is without obvious acute intracranial pathology....though it is notable for a patchy, superficial R parietal hyperintensity of uncertain significance...for which neurology is consulted.. MRA is unrevealing. P: Ok to defer additional neuroimaging for now PT/OT as necessary Will follow Consultation Date/Type/Reason Admit Date/Time Oct 15, 2018 at 13:49 Type of Consult Neurology Requesting Provider: KIKO FARRELL Date/Time of Note DATE: 10/17/18 TIME: 14:10 Exam Vital Signs Vitals Vital Signs Date Temp Pulse Resp B/P (MAP) Pulse Ox O2 O2 Flow FiO2 Time Delivery Rate 10/17/18 86 12:20 10/17/18 98.4 19 110/70 98 11:15 (83) 10/16/18 Room Air 04:16 Intake and Output 10/16/18 10/16/18 10/17/18 1515:00 23:00 07:00 IntakeIntake Total 600 ml BalanceBalance 600 ml ETHAN DUNN NP Oct 17, 2018 14:10
== END 2018-10-17 16:05 | disposition home health service (06) | DRG 69 ==
LOC: E/R 16:52 → 6WM 23:45 → OBSVTOIN 10-15 13:49
PROVIDERS: ADMIT Internal Medicine; ATTEND Hospitalist
DX: G45.9 Transient cerebral ischemic attack, unspecified (principal); E11.9 Type 2 diabetes mellitus without complications; I10 Essential (primary) hypertension; E78.5 Hyperlipidemia, unspecified; Z79.4 Long term (current) use of insulin; Z85.3 Personal history of malignant neoplasm of breast; Z90.11 Acquired absence of right breast and nipple; Z87.891 Personal history of nicotine dependence; Z79.82 Long term (current) use of aspirin
CPT/HCPCS: 36415; 70450; 70544; 70551; 70552; 71045; 80048; 80053; 80061; 82550; 82553; 82962; 83036; 83735; 84100; 84443; 84484; 85025; 85610; 85730; 92610; 93005; 93306; 93880; 97116; 97162; 97530; G0378; J1644; J1815

== ENCOUNTER 2019-04-03 18:02 | Emergency (ER) | payer BC, MEDICAID ==
[~2019-04-03] VITALS: Ht 154.9 cm; Wt 62.1 kg
[~2019-04-03 18:02] MED LIST changes: +ACET500C5 PO; -ATOR10TA65 PO; +ATOR40TA68 PO; +CYCL10TA7 PO; -GABA300C16 PO; +PRED20TA PO; -TRAM50TA PO; +TRAM50TA2 PO
[2019-04-03 18:05] VITALS: BP 135/85; PULSE 111; RESP 16; Ht 154.9 cm; Wt 62.1 kg
[2019-04-03] MEDS ORDERED: ACETAMINOPHEN 500 MG TAB PO STA (19:01)
--- NOTE | 2019-04-03 19:51 | ERD ---
ER Documentation Chief Complaint Chief Complaint LEFT ARM PAIN X1 WEEK, NO INJURY HPI Patient is a 58-year-old female, past medical history of breast cancer, finished chemo 1 year ago, DM type II, presents the ER for concerns of left shoulder pain for the last week. Patient describes the pain to be "[id number]". Patient admits to decreased range of motion of her left shoulder secondary to pain. Patient denies any chest pain, shortness of breath, nausea, vomiting, diaphoresis, radiating pain or LOC. Patient is right-hand dominant. ROS All systems reviewed and are negative except as per history of present illness. Medications Home Meds Active Scripts Acetaminophen* (Tylophen*) 500 Mg Capsule, 1 CAP PO Q6H PRN for PAIN AND OR ELEVATED TEMP, #20 CAP Prov:ANNALISE KELLER PA-C 04/03/19 Tramadol HCl (Tramadol HCl) 50 Mg Tablet, 50 MG PO Q6 PRN for PAIN, #20 TAB Prov:ANNALISE KELLER PA-C 04/03/19 Atorvastatin* (Atorvastatin*) 40 Mg Tablet, 40 MG PO QHS, #30 TAB 4 Refills Prov:KIKO FARRELL 10/17/18 Furosemide* (Lasix*) 20 Mg Tablet, 20 MG PO DAILY for 5 Days, TAB Prov:HALIE PURVIS MD 09/04/18 Ibuprofen* (Motrin*) 600 Mg Tab, 600 MG PO Q8 PRN for PAIN AND/OR INFLAMMATION, #30 TAB Prov:CEDRICK THAO MD 08/31/18 Reported Medications Anastrozole* (Arimidex*) 1 Mg Tablet, 1 MG PO DAILY, #30 TAB 08/08/18 Propranolol Hcl* (Propranolol Hcl*) 10 Mg Tablet, 5 MG PO BID, TAB 08/08/18 Lisinopril* (Lisinopril*) 5 Mg Tablet, 5 MG PO DAILY, #30 TAB 08/08/18 Insulin Glargine,Hum.rec.anlog (Basaglar Kwikpen U-100) 100 Unit/1 Ml Insuln.pen, 20 UNIT SC QPM, EA 08/08/18 Metformin* (Glucophage*) 1,000 Mg Tablet, 1000 MG PO BID, #60 TAB 08/08/18 Allergies Allergies: Coded Allergies: No Known Allergy (Unverified , 2/3/19) PMhx/Soc History of Surgery: Yes (Hernia repair, C/S, Appendectomy, Ovary removal, R breast masectomy (04/04)) Anesthesia Reaction: Yes Hx Neurological Disorder: No Hx Respiratory Disorders: No Hx Cardiac Disorders: No Hx Psychiatric Problems: Yes Hx Miscellaneous Medical Probl: Yes (DM,breast Ca s/p R mastectomy,chemo and radiation) Hx Alcohol Use: No Hx Substance Use: No Hx Tobacco Use: Yes (Quit 2017) Smoking Status: Never smoker FmHx Family History: diabetes Physical Exam Vitals Vital Signs Date Temp Pulse Resp B/P (MAP) Pulse Ox O2 O2 Flow FiO2 Time Delivery Rate 04/03/19 97.8 111 16 135/85 96 18:05 (102) Physical Exam GENERAL: Well-developed, well-nourished female. Appears in no acute distress. HEAD: Normocephalic, atraumatic. EYES: Pupils are equally reactive bilaterally. EOMs grossly intact. No conjunctival erythema. ENT: Moist mucous membranes. No uvula deviation. No kissing tonsils. NECK: Supple. No meningismus. Normal range of motion of the neck. LUNG: Clear to auscultation bilaterally. No rhonchi, wheezing, rales or coarse breath sounds. HEART: Regular rate and rhythm. No murmurs, rubs or gallops. Equal pulses in bilateral upper extremities. EXTREMITIES: Equal pulses bilaterally. No peripheral clubbing, cyanosis or edema. No unilateral leg swelling. NEUROLOGIC: Alert and oriented. Moving all four extremities without any difficulty. Normal speech. Steady gait. SKIN: Normal color. Warm and dry. No rashes or lesions. LUE: No deformity, erythema, ecchymosis. Mild swelling throughout upper arm when comparing to R upper arm. Tender to palpation over the anterior shoulder. Decreased active range of motion, normal passive range of motion of shoulder. Normal range of motion of the elbow. Sensation intact to light touch. Ne urovascularly intact. (Able to give thumbs up, make an ok sign, cross digits 2 and 3, thumb to pinky opposition. 2+ RP.) No snuffbox tenderness. Results 24 hrs Current Medications Medications Dose Sig/Melissa Start Time Status Last (Trade) Ordered Route PRN Stop Time Admin Dose Reason Admin 1,000 mg ONCE STAT 04/03/19 DC 04/03/19 Acetaminophen PO 19:01 19:06 (Tylenol 04/03/19 19:02 Tab) Procedures/MDM ED COURSE: The patient was stable throughout ED course. I kept the patient and/or family informed of laboratory and diagnostic imaging results throughout the ED course. DIAGNOSTIC IMAGING: Read by radiologist. Patient: PING BONILLA : 1960 Age: 58 Sex: F MR #: [id number] DOS: 04/03/191900 Ordering MD: ANNALISE KELLER PA-C Location: [facility] Room/Bed: PROCEDURE: Left humerus x-ray CLINICAL INDICATION: pain TECHNIQUE: AP and lateral views of the humerus were obtained. COMPARISON: None FINDINGS: There is normal mineralization. No acute fracture or dislocation is seen. There is no significant soft tissue swelling. The visualized joints are normal. RPTAT: AA IMPRESSION: Normal x-ray of the left humerus. .Nicola Rangel MD, MD Date Time Electronically viewed and signed by .Nicola Rangel MD, on 04/03/2019 19:36 .S/ CC: ANNALISE KELLER PA-C [id number] DIAGNOSTIC IMAGING REPORT Patient: PING BONILLA : 1960 Age: 58 Sex: F MR #: [id number] DOS: 04/03/191900 Ordering MD: ANNALISE KELLER PA-C Location: [facility] Room/Bed: PROCEDURE: XR left shoulder. CLINICAL INDICATION: Pain TECHNIQUE: AP, lateral and oblique views of the left shoulder were performed. COMPARISON: None. FINDINGS: There is normal osseous mineralization and alignment. No acute fracture or osseous lesion is identified. There are normal joints without evidence of arthritis or dislocation. There are scattered calcifications in the subdeltoid bursa. RPTAT: AA IMPRESSION: Possible mild calcific tendinitis. .Nicola Rangel MD, MD Date Time Electronically viewed and signed by .Nicola Rangel MD, MD on 04/03/2019 19:36 .S/ CC: ANNALISE KELLER PA-C [id number] DIAGNOSTIC IMAGING REPORT Patient: PING BONILLA : 1960 Age: 58 Sex: F MR #: [id number] DOS: 04/03/19 1901 Ordering MD: ANNALISE KELLER PA-C Location: [facility] Room/Bed: PROCEDURE: US left upper extremity veins. CLINICAL INDICATION: Left arm pain and swelling. TECHNIQUE: Multiple longitudinal and transverse images of the left upper extremity venous tree was obtained with carlos scale, pulsed Doppler, and color Doppler imaging. COMPARISON: None available FINDINGS: The left internal jugular, subclavian, axillary, brachial, basilic, radial, ulnar, and cephalic veins are patent. There is normal flow with augmentation and compressibility throughout. There is no thrombus or occlusion. IMPRESSION: 1. Normal venous system of the left upper extremity. No evidence of thrombus or occlusion. RPTAT: QQ Physician Eulalio Date Time Electronically viewed and signed by Physician Eulalio on 04/03/2019 20:04 RD/ CC: ANNALISE KELLER PA-C [id number] MEDICATIONS GIVEN: Tylenol Patient tolerated medication well with no adverse reactions. MEDICAL DECISION MAKING: This is a 58-year-old female presents ER for concern of left shoulder pain x1 week.. Vital signs were reviewed. Patient was afebrile. X-ray imaging of the shoulder did show concerns of a mild calcific tendinitis. Left humerus was unremarkable. Doppler study of the left upper extremity was unremarkable for DVT. At this time, patient presentation most consistent with calcific tendinitis. Low suspicion for ACS, PE, humerus fracture, shoulder dislocation, septic joint, lateral epicondylitis, medial epicondylitis, olecranon bursitis, osteomyelitis, DVT or compartment syndrome. PRESCRIPTIONS: Tylenol, tramadol Patient advised not to take tramadol when operating or driving any machinery. DISCHARGE: At this time, patient is stable for discharge and outpatient management. RICE therapy and ROM exercises were advised to avoid stiffness. I have instructed the patient to follow-up with his/her primary care physician in 1-2 days. I have discussed with the patient the possibility of needing to see an senior analysis specialist for further workup and imaging if the pain persists. I have instructed the patient to promptly return to the ER for any new or worsening symptoms including increased pain, swelling, redness, warmth or fever. The patient and/or family expressed understanding of and agreement with this plan. All questions were answered. Home care instructions were provided. Patients blood pressure was elevated (>120/80) but appears stable without evidence of hypertensive emergency, hypertensive urgency or end-organ failure. I had discussion with the patient about the risks of hypertension. I have advised the patient to follow up with his/her primary care physician for outpatient monitoring and treatment for hypertension in 2-3 days. I have instructed the patient to return to the ER for any new or worsening symptoms including chest pain, shortness of breath, headache, blurred vision, confusion, nausea, vomiting or LOC. Disclaimer: Inadvertent spelling and grammatical errors are likely due to EHR/dictation software use and do not reflect on the overall quality of patient care. Also, please note that the electronic time recorded on this note does not necessarily reflect the actual time of the patient encounter. Departure Diagnosis: Primary Impression: Calcific tendonitis of left shoulder Condition: Fair Patient Instructions: Understanding Frozen Shoulder, Treating Frozen Shoulder: Medical Treatment Referrals: COMMUNITY CLINICS YOU HAVE RECEIVED A MEDICAL SCREENING EXAM AND THE RESULTS INDICATE THAT YOU DO NOT HAVE A CONDITION THAT REQUIRES URGENT TREATMENT IN THE EMERGENCY DEPARTMENT. FURTHER EVALUATION AND TREATMENT OF YOUR CONDITION CAN WAIT UNTIL YOU ARE SEEN IN YOUR DOCTORS OFFICE WITHIN THE NEXT 1-2 DAYS. IT IS YOUR RESPONSIBILITY TO MAKE AN APPOINTMENT FOR FOLOW-UP CARE. IF YOU HAVE A PRIMARY DOCTOR --you should call your primary doctor and schedule an appointment IF YOU DO NOT HAVE A PRIMARY DOCTOR YOU CAN CALL OUR PHYSICIAN REFERRAL HOTLINE AT IF YOU CAN NOT AFFORD TO SEE A PHYSICIAN YOU CAN CHOSE FROM THE FOLLOWING [facility] [address] [place] [facility] [address] [facility] [address] [facility] [address] [facility] [address] [facility]. [facility] [address] [facility]. [facility] YOU HAVE RECEIVED A MEDICAL SCREENING EXAM AND THE RESULTS INDICATE THAT YOU DO NOT HAVE A CONDITION THAT REQUIRES URGENT TREATMENT IN THE EMERGENCY DEPARTMENT. FURTHER EVALUATION AND TREATMENT OF YOUR CONDITION CAN WAIT UNTIL YOU ARE SEEN IN YOUR DOCTORS OFFICE WITHIN THE NEXT 1-2 DAYS. IT IS YOUR RESPONSIBILITY TO MAKE AN APPOINTMENT FOR FOLOW-UP CARE. IF YOU HAVE A PRIMARY DOCTOR --you should call your primary doctor and schedule and appointment IF YOU DO NOT HAVE A PRIMARY DOCTOR YOU CAN CALL OUR PHYSICIAN REFERRAL HOTLINE AT . IF YOU CAN NOT AFFORD TO SEE A PHYSICIAN YOU CAN CHOSE FROM THE FOLLOWING [facility]: [facility] [place] [address] [place] [address] [facility] [address] [place], [place] [id number] [place] [address] [address] [place] [address] Additional Instructions: Llame al doctor MAANA y gucci dami YENNI PARA DENTRO DE 1-2 BREEN.Dgale a la secretaria que nosotros le instruimos hacer esta yenni.Avise o llame si prajapati condicin se empeora antes de la yenni. Regresa aqui si peor o no mejor. ANNALISE KELLER PA-C Apr 03, 2019 19:51
== END 2019-04-03 20:15 | disposition home or self-care (01) ==
LOC: FTE 18:02
DX: M75.32 Calcific tendinitis of left shoulder (principal); E11.9 Type 2 diabetes mellitus without complications; Z85.3 Personal history of malignant neoplasm of breast; Z79.4 Long term (current) use of insulin; Z87.891 Personal history of nicotine dependence
CPT/HCPCS: 73030; 73060; 93971; Z7610

== ENCOUNTER 2019-04-05 13:17 | Emergency (ER) | payer MEDICAID ==
[~2019-04-05] VITALS: Ht 154.9 cm; Wt 62.5 kg
[~2019-04-05 13:17] MED LIST changes: +BEN50 PO; +NAPR-985 PO
[2019-04-05 13:40] VITALS: Ht 154.9 cm; Wt 62.5 kg
[2019-04-05] MEDS ORDERED: HYDROCODONE/APAP (5/325) TAB PO ONE (14:30)
[2019-04-05] MEDS ORDERED: predniSONE 20 MG TAB PO ONE (14:30)
[2019-04-05 14:42] VITALS: BP 128/78; PULSE 90; RESP 18
== END 2019-04-05 14:45 | disposition home or self-care (01) ==
LOC: FTE 13:17
DX: M54.12 Radiculopathy, cervical region (principal); E11.9 Type 2 diabetes mellitus without complications; Z79.4 Long term (current) use of insulin; Z85.3 Personal history of malignant neoplasm of breast
CPT/HCPCS: J7512; Z7502; Z7610; 99283

== ENCOUNTER 2019-04-19 13:38 | Emergency (ER) | payer BC, MEDICAID ==
[~2019-04-19] VITALS: Ht 154.9 cm; Wt 62.7 kg
[2019-04-19 13:48] VITALS: Ht 154.9 cm; Wt 62.7 kg
[2019-04-19] MEDS ORDERED: KETOROLAC 15 MG INJ IM STA (16:44)
[2019-04-19 17:46] VITALS: BP 142/86; PULSE 78; RESP 16
== END 2019-04-19 17:47 | disposition home or self-care (01) ==
LOC: E/R 13:38
DX: M25.512 Pain in left shoulder (principal); I10 Essential (primary) hypertension; E11.9 Type 2 diabetes mellitus without complications; Z79.4 Long term (current) use of insulin; Z87.891 Personal history of nicotine dependence; Z85.3 Personal history of malignant neoplasm of breast
CPT/HCPCS: 93005; 96372; J1885; Z7502

== ENCOUNTER 2019-04-20 11:23 | Emergency (ER) | payer BC ==
[~2019-04-20] VITALS: Ht 152.4 cm; Wt 62.0 kg
[2019-04-20 11:28] VITALS: BP 121/81; PULSE 102; RESP 18; Ht 152.4 cm; Wt 62.0 kg
[2019-04-20] MEDS ORDERED: DIPHENHYDRAMINE 50 MG CAP PO ONE (12:00)
[2019-04-20] MEDS ORDERED: predniSONE 20 MG TAB PO ONE (12:00)
[2019-04-20] MEDS ORDERED: FAMOTIDINE 20 MG TAB PO ONE (12:00)
== END 2019-04-20 13:13 | disposition home or self-care (01) ==
LOC: FTE 11:23
DX: M79.89 Other specified soft tissue disorders (principal); E11.9 Type 2 diabetes mellitus without complications; Z85.3 Personal history of malignant neoplasm of breast; Z79.4 Long term (current) use of insulin; Z87.891 Personal history of nicotine dependence
CPT/HCPCS: 76536; 93971; J7512; Z7502; Z7610

== ENCOUNTER 2019-05-07 16:59 | Emergency (ER) | payer BC ==
[~2019-05-07] VITALS: Ht 149.9 cm; Wt 62.0 kg
[~2019-05-07 16:59] MED LIST changes: +METF100010 PO; +TRAM50TA PO
[2019-05-07 17:05] VITALS: Ht 149.9 cm; Wt 62.0 kg
[2019-05-07] MEDS ORDERED: KETOROLAC 30 MG INJ IM STA (17:52)
[2019-05-07 19:24] VITALS: BP 137/85; PULSE 96; RESP 18
== END 2019-05-07 19:25 | disposition home or self-care (01) ==
LOC: E/R 16:59
DX: R20.2 Paresthesia of skin (principal); E11.9 Type 2 diabetes mellitus without complications; F17.210 Nicotine dependence, cigarettes, uncomplicated; M79.602 Pain in left arm; Z79.4 Long term (current) use of insulin; Z85.3 Personal history of malignant neoplasm of breast
CPT/HCPCS: 73030; 93005; 96372; J1885; Z7502